=== PATIENT | male | born 1980 ===

== ENCOUNTER 2020-10-08 14:46 | Emergency (ER) | payer OTHER, SELFPAY ==
--- NOTE | ~2020-10-08 | CT_ITS ---
EXAMINATION: CT ABDOMEN AND PELVIS WITHOUT CONTRAST CLINICAL INFORMATION: Diffuse abdominal pain. COMPARISON: None TECHNIQUE: Multidetector volumetric imaging was performed from the superior aspect of the liver through the pubic symphysis. Sagittal and coronal reformatted images were obtained on the technologist's workstation. This CT examination was performed using dose optimization techniques as appropriate, variously including the following: *Automated exposure control. *Adjustment of mA and/or kV according to patient size (this includes techniques or standardized protocols for targeted exams where dose is matched to indication/reason for exam; i.e. extremities or head). *Use of iterative reconstruction technique. DLP: 534 mGy-cm FINDINGS: LUNG BASES: The visualized lung bases are unremarkable. LIVER, GALLBLADDER, AND BILIARY TREE: The liver is normal in size, shape, and attenuation. No focal hepatic lesion or biliary ductal dilatation is present. The gallbladder is minimally distended with no evidence of radiopaque gallstones, gallbladder wall thickening, or obvious pericholecystic inflammatory changes. PANCREAS: Evaluation limited without IV contrast. Grossly unremarkable. SPLEEN: Unremarkable. ADRENAL GLANDS: Unremarkable. KIDNEYS AND URETERS: The kidneys are normal in size, shape, and attenuation. No hydronephrosis, hydroureter, or calculi seen. Exophytic posterior left midpole renal cyst measuring 1.9 cm. No perinephric stranding. BLADDER: Unremarkable. GASTROINTESTINAL TRACT: Vrpk-[id number] stool throughout the colon. No significant bowel wall thickening or associated inflammatory change. Density in the region of the cecum, which could represent calcification. Partially visualized and unremarkable appendix. No associated inflammatory change. PERITONEAL CAVITY: No intra-abdominal free air or free fluid. ABDOMINAL WALL: No significant hernia is appreciated. LYMPH NODES: No significant lymphadenopathy, however, evaluation is limited without IV contrast. VASCULAR: Unremarkable. PELVIC VISCERA: The prostate and seminal vesicles are unremarkable. OSSEOUS STRUCTURES: Unremarkable. CT/CT abdomen pelvis wo con IMPRESSION: 1. Mtvv-lf-tibmgigx stool burden. No small or large bowel obstruction. Probable calcification in the region of the cecum. Partially visualized and unremarkable appendix. 2. No intra-abdominal mass, lymphadenopathy, or ascites. Evaluation somewhat limited without oral or IV contrast. 3. No hydronephrosis, hydroureter, or nephrolithiasis. Simple left renal cyst.
[2020-10-08 15:06] VITALS: BP 124/83; PULSE 68; RESP 16; TEMP 36.7; O2SAT 97; BMI 30.2
--- NOTE | 2020-10-08 17:53 | ED_ITS ---
HPI - Abdominal Pain General Chief Complaint: Abdominal Pain Stated Complaint: abd pain Time Seen by Provider: 10/08/20 17:52 Source: patient Mode of arrival: ambulatory Limitations: no limitations History of Present Illness HPI narrative: 40 years old male walked into the emergency department with diffuse abdominal pain, pain started about week ago after he played hockey game patient declined any serious abdominal trauma recently, describes the pain as moderate 5/10, pain is constant, described the pain as tightness in his bili, nothing makes the pain worse, nothing make it better, pain is just associated with dysuria but no other urinary tract infection symptoms, patient was seen and evaluated at an urgent care, patient had clear UA and also was negative for STDs then. Patient today still complaining of the pain, has been having headache, patient decline any recent exposure to a sick contact, and also declined any diarrhea or nausea or vomiting. Related Data Allergies Allergy/AdvReac Type Severity Reaction Status Date / Time gluten [GLUTEN] Allergy Unknown DIARRHEA Unverified 05/11/20 19:29 Review of Systems Review of Systems All other systems are reviewed and are negative Constitutional: Reports as per HPI and Reports no additional constitutional complaints Eyes: Reports as per HPI and Reports no additional eye complaints Reports system reviewed and no additional complaints, except as documented Cardiovascular: Reports as per HPI and Reports no additional cardiovascular complaints Respiratory: Reports as per HPI and Reports no additional respiratory complaints Gastrointestinal: Reports as per HPI and Reports no additional gastrointestinal complaints Genitourinary: Reports no additional female genitourinary complaints Musculoskeletal: Reports no additional musculoskeletal complaints Skin/Breast: Reports system reviewed and no additional complaints, except as docu Psychiatric: Reports no additional psychiatric complaints Endocrine: Reports no additional endocrine complaints Hematologic/Lymphatic: Reports no additional hematologic/lymphatic complaints Allergic/Immunologic: Reports no additional allergic/immunologic complaints Reports system reviewed and no additional complaints, except as documented and Reports Abnormal speech present Physical Exam Vital Signs: Vital Signs: Last Vital Signs Temp 98.7 F 10/08/20 18:00 Pulse 62 10/08/20 18:00 Resp 18 10/08/20 18:00 BP 117/55 L 10/08/20 18:00 Pulse Ox 96 10/08/20 18:00 Body Mass Index 30.2 Vital signs have been reviewed as normal and appeared to be correct. Blood pressure normal. Heart rate normal. Respiration rate normal. Temperature normal. Oxygen saturation normal. Appearance: Alert. Oriented X3. No acute distress. Head: Normal external exam. Normocephalic. Atraumatic. No Bae signs noted. No raccoon eyes noted Eyes: PERRLA. EOMI. Conjunctiva and sclera normal. Eyelids normal. ENT: EAC normal. TM's Normal. Pharynx normal. Uvula midline. Moist mucous membranes. No trismus noted. No drooling noted. No muffled voice noted. Neck: Normal inspection. Neck supple. FROM. No adenopathy. Thyroid Normal. No meningeal signs. No neck mass noted. CVS: Normal heart rate and rhythm. Heart sound normal. No murmurs noted. Pulses normal throughout. Respiratory: No respiratory distress. Painless inspiration. Breath sounds normal. No wheezes/rales/rhonchi noted. Chest nontender. No accessory muscle usage noted or decreased air movement noted. Abdomen: Soft and nontender. Bowel sounds normal in all 4 quadrants. No distention noted. No organomegaly noted. No visible injury noted. Back: No CVA tenderness. Full range of motion noted. Skin: Skin warm and dry. Normal skin color. Normal skin turgor. No rashes/lesions/lacerations noted. Extremities: No lower extremity edema. Extremities exhibit normal range of motion. Extremities nontender. Neuro: Oriented X 3. No motor deficit. No sensory deficit. Reflexes normal. Course Course Course Narrative: Assessment and plan. 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 Patient was instructed to drink plenty of fluids. MDM - Abdominal Pain Lab Data Result diagrams: 10/08/20 18:06 10/08/20 18:06 Labs: Lab Results 10/08/20 10/08/20 10/08/20 Range/Units 18:06 18:06 18:06 WBC 4.1 L (4.8-10.8) X10*3/uL RBC 4.30 L (4.60-5.80) X10*6/uL Hgb 13.9 L (14.0-18.0) g/dl Hct 42.1 (42-52) % MCV 97.9 (80-98) fL MCH 32.3 (27.0-33.0) pg MCHC 33.0 (31.0-36.0) g/dl RDW 12.0 (11.0-16.0) % Plt Count 239 (160-400) X10*3/uL MPV 9.7 (9.4-12.4) fL Immature Gran % (Auto) 0.2 (0.0-0.4) % Neut % (Auto) 41.8 L (45-73) % Lymph % (Auto) 43.2 H (20-40) % [place] % (Auto) 8.4 (2-11) % Eos % (Auto) 5.4 H (0-4) % Baso % (Auto) 1.0 (0-2) % Lymph # (Auto) 1.8 (1.2-4.9) X10*3/uL [place] # (Auto) 0.3 (0.1-1.2) X10*3/uL Eos # (Auto) 0.2 (0.0-0.4) X10*3/uL Baso # (Auto) 0.0 (0.0-0.2) X10*3/uL Abs Immat Gran (auto) 0.01 (0.00-0.03) X10*3/uL Absolute Neuts (auto) 1.7 L (2.0-8.3) X10*3/uL Absolute Nucleated RBC 0.000 (0.0-0.012) X10*3/uL Nucleated RBC % (auto) 0.0 (0.0-0.2) /100WBC Sodium 140 (135-145) mmol/L Potassium 4.3 (3.3-5.1) mmol/L Chloride 107 (96-108) mmol/L Carbon Dioxide 25 (22-29) mmol/L Anion Gap 12 (12-20) BUN 22 H (9-16) mg/dL Creatinine 1.26 (0.5-1.4) mg/dL Estim Creat Clear Calc 87.7 Estimated GFR > 60 Random Glucose 92 (60-115) mg/dL Calcium 9.2 (8.4-10.2) mg/dL Total Bilirubin 0.7 (0.0-1.0) mg/dL Direct Bilirubin 0.2 (0.0-0.5) mg/dL AST 30 (5-37) U/L ALT 42 H (0-40) U/L Alkaline Phosphatase 49 (39-117) U/L Total Creatine Kinase 559 H (38-174) U/L Troponin I High Sens < 3.5 (<3.5-35.0) ng/L Total Protein 6.6 (6.5-8.0) g/dL Albumin 4.3 (3.5-5.0) g/dL Lipase 37 (8-78) U/L Urine Color Urine Appearance Urine pH (5.0-8.0) Ur Specific Mineral (1.005-1.025) Urine Protein (NEG-TRACE) MG/DL Urine Glucose (UA) (NEG) MG/DL Urine Ketones (NEG) MG/DL Urine Blood (NEG) Urine Nitrite (NEG) Ur Leukocyte Esterase (NEG) COVID-19 (DIANE) (Negative) COVID-19 Clin Com 10/08/20 10/08/20 Range/Units 18:06 18:06 WBC (4.8-10.8) X10*3/uL RBC (4.60-5.80) X10*6/uL Hgb (14.0-18.0) g/dl Hct (42-52) % MCV (80-98) fL MCH (27.0-33.0) pg MCHC (31.0-36.0) g/dl RDW (11.0-16.0) % Plt Count (160-400) X10*3/uL MPV (9.4-12.4) fL Immature Gran % (Auto) (0.0-0.4) % Neut % (Auto) (45-73) % Lymph % (Auto) (20-40) % [place] % (Auto) (2-11) % Eos % (Auto) (0-4) % Baso % (Auto) (0-2) % Lymph # (Auto) (1.2-4.9) X10*3/uL [place] # (Auto) (0.1-1.2) X10*3/uL Eos # (Auto) (0.0-0.4) X10*3/uL Baso # (Auto) (0.0-0.2) X10*3/uL Abs Immat Gran (auto) (0.00-0.03) X10*3/uL Absolute Neuts (auto) (2.0-8.3) X10*3/uL Absolute Nucleated RBC (0.0-0.012) X10*3/uL Nucleated RBC % (auto) (0.0-0.2) /100WBC Sodium (135-145) mmol/L Potassium (3.3-5.1) mmol/L Chloride (96-108) mmol/L Carbon Dioxide (22-29) mmol/L Anion Gap (12-20) BUN (9-16) mg/dL Creatinine (0.5-1.4) mg/dL Estim Creat Clear Calc Estimated GFR Random Glucose (60-115) mg/dL Calcium (8.4-10.2) mg/dL Total Bilirubin (0.0-1.0) mg/dL Direct Bilirubin (0.0-0.5) mg/dL AST (5-37) U/L ALT (0-40) U/L Alkaline Phosphatase (39-117) U/L Total Creatine Kinase (38-174) U/L Troponin I High Sens (<3.5-35.0) ng/L Total Protein (6.5-8.0) g/dL Albumin (3.5-5.0) g/dL Lipase (8-78) U/L Urine Color YELLOW Urine Appearance CLEAR Urine pH 6.0 (5.0-8.0) Ur Specific Mineral 1.025 (1.005-1.025) Urine Protein NEG (NEG-TRACE) MG/DL Urine Glucose (UA) NEG (NEG) MG/DL Urine Ketones NEG (NEG) MG/DL Urine Blood NEG (NEG) Urine Nitrite NEG (NEG) Ur Leukocyte Esterase NEG (NEG) COVID-19 (DIANE) Negative (Negative) COVID-19 Clin Com See Note Imaging Data CT scan - abdomen: Radiologist's impression: 1. Ymdr-[id number] stool burden. No small or large bowel obstruction. Probable calcification in the region of the cecum. Partially visualized and unremarkable appendix. 2. No intra-abdominal mass, lymphadenopathy, or ascites. Evaluation somewhat limited without oral or IV contrast. 3. No hydronephrosis, hydroureter, or nephrolithiasis. Simple left renal cyst. Discharge Plan Discharge Clinical Impression: Abdominal pain Qualifiers: Abdominal location: unspecified location Qualified Code(s): R10.9 - Unspecified abdominal pain Rhabdomyolysis Qualifiers: Rhabdomyolysis type: non-traumatic Qualified Code(s): M62.82 - Rhabdomyolysis Patient Disposition: Home, Self-Care Instructions: Acute Abdominal Pain (ED), Rhabdomyolysis (ED) Additional Instructions: Drink plenty of fluids, seek immediate medical attention if the abdominal pain is worsening. Referrals: Sammie Rivera MD [Primary Care Provider] - 2 days PMF Past Medical History Medical History Heart disease Social History Social History Advance Directives: No Advance Directives Information Provided: Yes
[2020-10-08 18:00] VITALS: BP 117/55; PULSE 62; RESP 18; TEMP 37.1; O2SAT 96
[2020-10-08] MEDS: 0.9 % Sodium Chloride 1,000 ML 999 ML IVCONT (18:00)
[2020-10-08 18:14] LABS: MANUAL DIFF FLAG NO
[2020-10-08 18:17] LABS: Eosinophils Absolute Auto 0.2 X10*3/uL (0.0-0.4); Eosinophils Percent Auto 5.4 % (0-4); Hematocrit 42.1 % (42-52); Hemoglobin 13.9 g/dl (14.0-18.0); Imm Gran Abs Auto 0.01 X10*3/uL (0.00-0.03); Imm Gran Pct Auto 0.2 % (0.0-0.4); Lymphocytes Absolute Auto 1.8 X10*3/uL (1.2-4.9); Lymphocytes Percent Auto 43.2 % (20-40); Mean Corpuscular Hemoglobin 32.3 pg (27.0-33.0); Mean Corpuscular Volume 97.9 fL (80-98); Mean Platelet Volume 9.7 fL (9.4-12.4); Monocytes Absolute Auto 0.3 X10*3/uL (0.1-1.2); Monocytes Percent Auto 8.4 % (2-11); Neutrophils Absolute Auto 1.7 X10*3/uL (2.0-8.3); Neutrophils Percent Auto 41.8 % (45-73); Platelet Count 239 X10*3/uL (160-400); White Blood Count 4.1 X10*3/uL (4.8-10.8)
[2020-10-08 18:19] LABS: Glucose Urine UA NEG (NEG); Leukocyte Esterase Urine NEG (NEG); Nitrite Urine NEG (NEG); Specific Gravity - Urine 1.025 (1.005-1.025); Urine Blood NEG (NEG); Urine Ketones NEG (NEG); Urine Protein NEG (NEG-TRACE)
[2020-10-08 18:20] LABS: Appearance Urine CLEAR; Color Urine YELLOW
--- NOTE | 2020-10-08 18:27 | PC.NURSE ---
pt to ct scan
[2020-10-08 18:31] LABS: COVID-19 Test Negative (Negative)
[2020-10-08 18:40] LABS: Alanine Aminotransferase 42 U/L (0-40); Albumin Level 4.3 g/dL (3.5-5.0); Alkaline Phosphatase 49 U/L (39-117); Anion Gap 12 (12-20); Aspartate Amino Transferase 30 U/L (5-37); Bilirubin Direct 0.2 mg/dL (0.0-0.5); Bilirubin Total 0.7 mg/dL (0.0-1.0); Blood Urea Nitrogen 22 mg/dL (9-16); Calcium 9.2 mg/dL (8.4-10.2); Carbon Dioxide 25 mmol/L (22-29); Chloride 107 mmol/L (96-108); Creatinine Clr Calc Pharmacy 87.7; Estimated Glomerular Filt Rate > 60; Glucose Random 92 mg/dL (60-115); Lipase 37 U/L (8-78); Potassium 4.3 mmol/L (3.3-5.1); Sodium 140 mmol/L (135-145); Total Protein 6.6 g/dL (6.5-8.0)
[2020-10-08 18:43] LABS: Troponin-I High Sensitivity < 3.5 ng/L (<3.5-35.0)
== END 2020-10-08 20:03 | disposition home or self-care (01) ==
PROVIDERS: Emergency Provider Emergency Medicine; PCP Internal Medicine
DX: R10.9 Unspecified abdominal pain (principal); M62.82 Rhabdomyolysis; Z20.822 Contact with and (suspected) exposure to COVID-19; Z79.899 Other long term (current) drug therapy
CPT/HCPCS: 36415; 74176; 80048; 80076; 81003; 82550; 83690; 84484; 85025; 87635; 96360; 99284

== ENCOUNTER 2022-02-13 17:58 | Emergency (ER) | payer OTHER, SELFPAY ==
--- NOTE | 2022-02-13 | ECG_ITS ---
Test Reason : CHEST PAIN Blood Pressure : / mmHG Vent. Rate : 067 BPM Atrial Rate : 067 BPM P-R Int : 170 ms QRS Dur : 098 ms QT Int : 392 ms P-R-T Axes : 043 001 045 degrees QTc Int : 414 ms Normal sinus rhythm with sinus arrhythmia Normal ECG No previous ECGs available Referred By: Generic ED Physician Electronically Signed By:ALOK RAMIREZ MD
--- NOTE | ~2022-02-13 | XR_ITS ---
EXAMINATION: PORTABLE CHEST 1 VIEW CLINICAL INFORMATION: chest pain . COMPARISON: No recent pertinent prior studies are available for comparison. TECHNIQUE: Portable frontal view of the chest was obtained. FINDINGS: The lungs are well expanded. No focal infiltrate, effusion, edema, or pneumothorax. Cardiac and mediastinal silhouettes are within normal limits for technique. No acute bony abnormality seen. XR/XR chest 1V IMPRESSION: No evidence of acute disease.
[2022-02-13 18:16] VITALS: BP 142/86; PULSE 65; RESP 16; TEMP 36.7; O2SAT 97; BMI 31.0
[2022-02-13 18:57] LABS: COVID-19 Test Negative (Negative); IDNOW Serial# 9DB6401D
--- NOTE | 2022-02-13 19:57 | ED_ITS ---
HPI - Chest Pain General Chief Complaint: Chest Pain Stated Complaint: tired, check tightness,High pressure Time Seen by Provider: 02/13/22 19:55 Source: patient Mode of arrival: ambulatory Limitations: no limitations History of Present Illness HPI narrative: 41-year-old male with history of HTN, hx NH in his late 20 who presents to the ER for evaluation of chest tightness, headache, sore throat and fatigue. He reports during episodes of chest tightness he has been having high blood pressure readings at home. He has been compliant with all his metoprolol. He states the chest tightness and fatigue started 3 days ago. He is usually very active and plays sports, works out 2x per day. He reports the chest tightness comes and goes, is generally mild. It does not radiate. None at this time. He has no shortness of breath. No cough. No known sick contacts. MD complaint: chest heaviness Pertinent past history: prior NH Onset (ago): day(s) (3) Timing of current episode: episodic Prior episodes: No Onset: during rest Pain location: substernal Pain radiation: none Severity: mild Quality: tightness Relieving factors: nothing Exacerbating factors: nothing Context: recent illness Treatment prior to arrival: none Risk Factors Coronary artery disease risk factors: hypertension and family history of CAD bef ore age 50 Thoracic aortic dissection risk factors: none Related Data Allergies Allergy/AdvReac Type Severity Reaction Status Date / Time gluten [GLUTEN] Allergy Unknown DIARRHEA Unverified 05/11/20 19:29 Review of Systems Review of Systems: Constitutional: No Fever, No Chills, +fatigue ENT/Mouth: +sore throat, No Rhinorrhea, No Swallowing Difficulty, +otalgia Eyes: No Eye Pain, No Swelling, No Redness Cardiovascular: + Chest Pain, No SOB, No Orthopnea, No Edema Respiratory: No Cough, No Sputum, No Wheezing, No dyspnea Gastrointestinal: No Nausea, No Vomiting, No Diarrhea, No abdominal Pain, No Hematochezia, No Melena Genitourinary: No Dysuria, No Urinary Frequency, No Hematuria Musculoskeletal: No joint pain, + Myalgias Skin: No Skin Lesions, No rash Neuro: + Weakness, No Numbness, No Dizziness, + Headache Psych: No Anxiety/Panic, No Depression Heme/Lymph: No Bruising, No Lymphadenopathy Endocrine: No Polyuria, No Polydipsia PMFSH Past Medical History Medical History (Updated 02/13/22 @ 20:52 by EAN Del Rosario) Heart disease Hypertension Social History Social History Alcohol intake: current Alcohol intake frequency: a few times a week Alcohol type: hard liquor Patient Tobacco Use Status: Never used Tobacco Use of substances other than those prescribed or required for medical reasons: No Advance Directives: No Advance Directives Information Provided: Yes Physical Exam Vital Signs: Vital Signs: Last Vital Signs Temp 98.0 F 02/13/22 18:16 Pulse 63 02/13/22 20:00 Resp 18 02/13/22 20:00 BP 157/100 H 02/13/22 20:00 Pulse Ox 98 02/13/22 20:00 O2 Del Method 02/13/22 20:00 BMI result Body Mass Index 31.0 Appearance: Alert. Oriented X3. No acute distress. Eyes: Pupils equal, round and reactive to light. ENT: Pharynx with mild posterior erythema, no tonsillar exudate or swelling, uvula midline Neck: Normal inspection. Neck supple. CVS: Normal heart rate and rhythm. Pulses normal. Respiratory: No respiratory distress. Breath sounds normal. Abdomen: Soft and nontender. +BS x4 Skin: Skin warm and dry. Normal skin color. Normal skin turgor. No rashes. Extremities: No lower extremity edema. No calf tenderness Neuro: Oriented X 3. No motor deficit. No sensory deficit. Course Course Course Narrative: 41 yo male with history of NH in his late 20s presents to the ER with in termittent chest tightness for the last 3 days along with fatigue, headache, ear pain and not feeling well. 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 he reports having a heart catheterization at that time that did not show any blockages. He has been on Lopressor, baby aspirin and low-dose Lipitor since then. He follows with exercise physiologist certified yearly. He gets echocardiograms every 2 years and has had no changes. His chest tightness does not seem typical for ACS but will check troponin. His EKG is unremarkable. Will check COVID, mono, chest x-ray and metabolic workup. Reevaluation(s) Reevaluation #1: Lab workup was unremarkable, including a negative troponin. He is feeling well. At this time is stable for discharge home with plan to follow-up with his PCP and his exercise physiologist certified. His blood pressure has been in the 150 range systolic at home. He has been compliant with his meds will follow up with his PCP for possible titration. MDM - Chest Pain Medical Records Data Attestation: I reviewed the patient's medical records. Lab Data Attestation: I reviewed the patient's lab results. Result diagrams: 02/13/22 20:13 02/13/22 20:13 Labs: Lab Results 02/13/22 02/13/22 02/13/22 Range/Units 18:21 20:13 20:13 WBC 4.8 (4.8-10.8) X10*3/uL RBC 3.97 L (4.60-5.80) X10*6/uL Hgb 13.4 L (14.0-18.0) g/dl Hct 39.6 L (42.0-52.0) % MCV 99.7 H (80.0-98.0) fL MCH 33.8 H (27.0-33.0) pg MCHC 33.8 (31.0-36.0) g/dl RDW 12.1 (11.0-16.0) % Plt Count 204 (160-400) X10*3/uL MPV 9.8 (9.4-12.4) fL Immature Gran % (Auto) 0.2 (0.0-0.4) % Neut % (Auto) 64.9 (45-73) % Lymph % (Auto) 24.5 (20-40) % [place] % (Auto) 6.9 (2-11) % Eos % (Auto) 2.9 (0-4) % Baso % (Auto) 0.6 (0-2) % Lymph # (Auto) 1.2 (1.2-4.9) X10*3/uL [place] # (Auto) 0.3 (0.1-1.2) X10*3/uL Eos # (Auto) 0.1 (0.0-0.4) X10*3/uL Baso # (Auto) 0.0 (0.0-0.2) X10*3/uL Abs Immat Gran (auto) 0.01 (0.00-0.03) X10*3/uL Absolute Neuts (auto) 3.1 (2.0-8.3) x10*3/uL Absolute Nucleated RBC 0.000 (0.0-0.012) X10*3/uL Nucleated RBC % (auto) 0.0 (0.0-0.2) /100WBC Sodium 138 (135-145) mmol/L Potassium 4.4 (3.3-5.1) mmol/L Chloride 103 (96-108) mmol/L Carbon Dioxide 27 (22-29) mmol/L Anion Gap 12 (12-20) BUN 12 (9-16) mg/dL Creatinine 0.99 (0.5-1.4) mg/dL Estim Creat Clear Calc 111.8 Estimated GFR > 60 Random Glucose 87 (60-115) mg/dL Calcium 9.0 (8.4-10.2) mg/dL Magnesium 2.2 (1.6-2.6) mg/dL Total Bilirubin 0.5 (0.0-1.0) mg/dL Direct Bilirubin 0.2 (0.0-0.5) mg/dL AST 25 (5-37) U/L ALT 30 (0-40) U/L Alkaline Phosphatase 45 (39-117) U/L Troponin I High Sens (<3.5-35.0) ng/L Total Protein 6.8 (6.5-8.0) g/dL Albumin 4.4 (3.5-5.0) g/dL COVID-19 (DIANE) Negative (Negative) COVID-19 Clin Com See Note Monoscreen (Negative) 02/13/22 02/13/22 Range/Units 20:13 20:13 WBC (4.8-10.8) X10*3/uL RBC (4.60-5.80) X10*6/uL Hgb (14.0-18.0) g/dl Hct (42.0-52.0) % MCV (80.0-98.0) fL MCH (27.0-33.0) pg MCHC (31.0-36.0) g/dl RDW (11.0-16.0) % Plt Count (160-400) X10*3/uL MPV (9.4-12.4) fL Immature Gran % (Auto) (0.0-0.4) % Neut % (Auto) (45-73) % Lymph % (Auto) (20-40) % [place] % (Auto) (2-11) % Eos % (Auto) (0-4) % Baso % (Auto) (0-2) % Lymph # (Auto) (1.2-4.9) X10*3/uL [place] # (Auto) (0.1-1.2) X10*3/uL Eos # (Auto) (0.0-0.4) X10*3/uL Baso # (Auto) (0.0-0.2) X10*3/uL Abs Immat Gran (auto) (0.00-0.03) X10*3/uL Absolute Neuts (auto) (2.0-8.3) x10*3/uL Absolute Nucleated RBC (0.0-0.012) X10*3/uL Nucleated RBC % (auto) (0.0-0.2) /100WBC Sodium (135-145) mmol/L Potassium (3.3-5.1) mmol/L Chloride (96-108) mmol/L Carbon Dioxide (22-29) mmol/L Anion Gap (12-20) BUN (9-16) mg/dL Creatinine (0.5-1.4) mg/dL Estim Creat Clear Calc Estimated GFR Random Glucose (60-115) mg/dL Calcium (8.4-10.2) mg/dL Magnesium (1.6-2.6) mg/dL Total Bilirubin (0.0-1.0) mg/dL Direct Bilirubin (0.0-0.5) mg/dL AST (5-37) U/L ALT (0-40) U/L Alkaline Phosphatase (39-117) U/L Troponin I High Sens < 3.5 (<3.5-35.0) ng/L Total Protein (6.5-8.0) g/dL Albumin (3.5-5.0) g/dL COVID-19 (DIANE) (Negative) COVID-19 Clin Com Monoscreen Negative (Negative) ECG Data ECG #1: Attestation: I personally reviewed and interpreted this ECG as follows: ECG interpretation date: 02/13/22 ECG interpretation time: 20:54 Prior ECG tracings: not available for review Interpretation: normal sinus rhythm with sinus arrhythmia, heart rate 67 beats per minute, normal WI interval, no ST segment elevations or depressions. Critical Care Time Critical Care Time Critical Care Time: No Discharge Plan Discharge Clinical Impression: Acute viral syndrome Patient Disposition: Home, Self-Care Instructions: Viral Syndrome (ED) Additional Instructions: your lab workup today was normal, including a negative cardiac enzyme your chest x-ray was normal you are negative for COVID-19 and [place] your symptoms are most likely due to a viral type illness rest, stay hydrated follow up with your primary care doctor this week if you develop new or worsening symptoms call 911 or come back to the ER for further evaluation. Interventions: ED Discharge Assessment Last Done: 02/13/22 21:16 Discharge Date/Time: 02/13/22 21:34
[2022-02-13 20:00] VITALS: BP 157/100; PULSE 63; RESP 18; O2SAT 98
--- NOTE | 2022-02-13 20:16 | PC.NURSE ---
patient a&ox3, pt currently denying chest pain/discomfort, residential monitor nsr 60s, pt hypertensive-provider aware, iv inserted, labs drawn, will continue to monitor
[2022-02-13 20:18] LABS: MANUAL DIFF FLAG NO
[2022-02-13 20:21] LABS: Basophils Percent Auto 0.6 % (0-2); Eosinophils Absolute Auto 0.1 X10*3/uL (0.0-0.4); Eosinophils Percent Auto 2.9 % (0-4); Hematocrit 39.6 % (42.0-52.0); Hemoglobin 13.4 g/dl (14.0-18.0); Imm Gran Abs Auto 0.01 X10*3/uL (0.00-0.03); Imm Gran Pct Auto 0.2 % (0.0-0.4); Lymphocytes Absolute Auto 1.2 X10*3/uL (1.2-4.9); Lymphocytes Percent Auto 24.5 % (20-40); Mean Corpuscular HGB Conc 33.8 g/dl (31.0-36.0); Mean Corpuscular Hemoglobin 33.8 pg (27.0-33.0); Mean Corpuscular Volume 99.7 fL (80.0-98.0); Mean Platelet Volume 9.8 fL (9.4-12.4); Monocytes Absolute Auto 0.3 X10*3/uL (0.1-1.2); Monocytes Percent Auto 6.9 % (2-11); Neutrophils Absolute Auto 3.1 x10*3/uL (2.0-8.3); Neutrophils Percent Auto 64.9 % (45-73); Platelet Count 204 X10*3/uL (160-400); Red Blood Count 3.97 X10*6/uL (4.60-5.80); Red Cell Distribution Width 12.1 % (11.0-16.0); White Blood Count 4.8 X10*3/uL (4.8-10.8)
[2022-02-13 20:34] LABS: Alanine Aminotransferase 30 U/L (0-40); Albumin Level 4.4 g/dL (3.5-5.0); Alkaline Phosphatase 45 U/L (39-117); Anion Gap 12 (12-20); Aspartate Amino Transferase 25 U/L (5-37); Bilirubin Direct 0.2 mg/dL (0.0-0.5); Bilirubin Total 0.5 mg/dL (0.0-1.0); Blood Urea Nitrogen 12 mg/dL (9-16); Carbon Dioxide 27 mmol/L (22-29); Chloride 103 mmol/L (96-108); Creatinine Clr Calc Pharmacy 111.8; Estimated Glomerular Filt Rate > 60; Glucose Random 87 mg/dL (60-115); Magnesium 2.2 mg/dL (1.6-2.6); Potassium 4.4 mmol/L (3.3-5.1); Sodium 138 mmol/L (135-145); Total Protein 6.8 g/dL (6.5-8.0)
[2022-02-13 20:40] LABS: Troponin-I High Sensitivity < 3.5 ng/L (<3.5-35.0)
[2022-02-13 20:44] LABS: Monotest Negative (Negative)
== END 2022-02-13 21:34 | disposition home or self-care (01) ==
PROVIDERS: Physician Assistant; Emergency Provider Internal Medicine; PCP Internal Medicine
DX: B34.9 Viral infection, unspecified (principal); R07.89 Other chest pain; Z20.822 Contact with and (suspected) exposure to COVID-19; Z79.899 Other long term (current) drug therapy
CPT/HCPCS: 36415; 71045; 80048; 80076; 83735; 84484; 85025; 86308; 87635; 93005; 99283; 99284; 99285

== ENCOUNTER 2022-03-24 17:02 | Emergency (ER) | payer OTHER, SELFPAY ==
--- NOTE | ~2022-03-24 | CT_ITS ---
EXAMINATION: NONCONTRAST HEAD CT NONCONTRAST MAXILLOFACIAL CT INDICATION INFORMATION: Dizziness and left jaw pain status post dental work COMPARISON: None TECHNIQUE: Separate noncontrast CT examinations of the head and maxillofacial bones were performed. Coronal and sagittal images were created for each examination at the technologist workstation. This CT examination was performed using dose optimization techniques as appropriate, variously including the following: *Automated exposure control *Adjustment of mA and/or kV according to patient size (this includes techniques or standardized protocols for targeted exams where dose is matched to indication/reason for exam; i.e. extremities or head) *Use of iterative reconstruction technique DLP: 1045 mGy-cm FINDINGS: HEAD: No intra or extra-axial fluid collection, hemorrhage, or mass. No midline shift or herniation. Basal cisterns are patent. Lyman-white matter differentiation is maintained. No territorial encephalomalacia.. No hydrocephalus. No significant volume loss. There is no abnormal attenuation within the brain parenchyma. No acute soft tissue abnormality. No calvarial fracture. The mastoid air cells are well aerated. MAXILLOFACIAL: No acute facial bone fractures are seen. Mild lobulated mucosal thickening along the floor the maxillary antra bilaterally. Minimal mucosal thickening in the sphenoid sinuses and within a few ethmoid air cells. No air-fluid levels. No hyperostosis. The mandibular heads are normally positioned in the glenoid fossa. No periapical lucencies about the mandibular maxillary teeth. Multiple dental fillings. No fractured teeth identified. The orbits demonstrate a normal appearance bilaterally. The globes are intact. No evidence of retrobulbar hemorrhage. Normal appearance of the parotid, merchandising intern and submandibular spaces. No mucosal space mass. No displacement of the parapharyngeal fat. CT/CT facial bones wo con IMPRESSION: 1. No acute intracranial process. 2. No periapical lucencies to suggest dental abscess. No facial bone fracture. No soft tissue fluid collection identified.
--- NOTE | ~2022-03-24 | CT_ITS ---
EXAMINATION: NONCONTRAST HEAD CT NONCONTRAST MAXILLOFACIAL CT INDICATION INFORMATION: Dizziness and left jaw pain status post dental work COMPARISON: None TECHNIQUE: Separate noncontrast CT examinations of the head and maxillofacial bones were performed. Coronal and sagittal images were created for each examination at the technologist workstation. This CT examination was performed using dose optimization techniques as appropriate, variously including the following: *Automated exposure control *Adjustment of mA and/or kV according to patient size (this includes techniques or standardized protocols for targeted exams where dose is matched to indication/reason for exam; i.e. extremities or head) *Use of iterative reconstruction technique DLP: 1045 mGy-cm FINDINGS: HEAD: No intra or extra-axial fluid collection, hemorrhage, or mass. No midline shift or herniation. Basal cisterns are patent. Lyman-white matter differentiation is maintained. No territorial encephalomalacia.. No hydrocephalus. No significant volume loss. There is no abnormal attenuation within the brain parenchyma. No acute soft tissue abnormality. No calvarial fracture. The mastoid air cells are well aerated. MAXILLOFACIAL: No acute facial bone fractures are seen. Mild lobulated mucosal thickening along the floor the maxillary antra bilaterally. Minimal mucosal thickening in the sphenoid sinuses and within a few ethmoid air cells. No air-fluid levels. No hyperostosis. The mandibular heads are normally positioned in the glenoid fossa. No periapical lucencies about the mandibular maxillary teeth. Multiple dental fillings. No fractured teeth identified. The orbits demonstrate a normal appearance bilaterally. The globes are intact. No evidence of retrobulbar hemorrhage. Normal appearance of the parotid, equipment services associate and submandibular spaces. No mucosal space mass. No displacement of the parapharyngeal fat. CT/CT head/brain wo con IMPRESSION: 1. No acute intracranial process. 2. No periapical lucencies to suggest dental abscess. No facial bone fracture. No soft tissue fluid collection identified.
--- NOTE | ~2022-03-24 | XR_ITS ---
EXAMINATION: XR CHEST CLINICAL INFORMATION: Chest pain. COMPARISON: February 13, 2022. TECHNIQUE: Frontal view of the chest was obtained. FINDINGS: No significant abnormality is noted involving the heart, lungs, mediastinum, bony thorax or soft tissues. XR/XR chest 1V IMPRESSION: Unremarkable examination.
[2022-03-24 17:09] VITALS: BP 149/80; PULSE 70; RESP 18; TEMP 36.8; O2SAT 96; BMI 32.3
--- NOTE | 2022-03-24 17:16 | ECG_ITS ---
Test Reason : CX TIGHTNESS Blood Pressure : / mmHG Vent. Rate : 068 BPM Atrial Rate : 068 BPM P-R Int : 166 ms QRS Dur : 100 ms QT Int : 374 ms P-R-T Axes : 044 -07 028 degrees QTc Int : 397 ms Normal sinus rhythm Incomplete right bundle branch block Minimal voltage criteria for LVH, may be normal variant ( Kj product ) Inferior infarct , age undetermined Abnormal ECG When compared with ECG of 13-FEB-2022 18:20, Inferior infarct is now Present Referred By: Generic ED Physician Electronically Signed By:ALOK RAMIREZ MD
--- NOTE | 2022-03-24 18:12 | ED.CHESTPAIN ---
HPI - Chest Pain General Chief Complaint: Chest Pain Stated Complaint: headaches/pain on L side of face/dizziness Source: patient Mode of arrival: ambulatory Limitations: no limitations History of Present Illness HPI narrative: 42-year-old male presents with jaw pain with recent dental work, chest pain, pressure in his head, lethargy, dizziness, headaches, numbness and tingling to his hands and feet, and gland swelling. Was diagnosed with COVID approximately 3 weeks ago, was evaluated by a import customer service manager and a primary care physician last week. Patient does not report pain on inspiration, palpitations, diaphoresis, abdominal pain and distention, and vomiting, diarrhea, weakness, loss of balance, or symptoms indicating cauda equina. He does have a prior history of MS in his 20s. MD complaint: chest pain Pertinent past history: prior MS Onset (ago): week(s) (3) Timing of current episode: constant Prior episodes: Yes Pain location: substernal Pain radiation: none Severity: moderate Pain scale (0-10): 6 Quality: aching Relieving factors: nothing Exacerbating factors: nothing Context: recent illness Treatment prior to arrival: none Risk Factors Thoracic aortic dissection risk factors: weight lifting Related Data Previous Rx's Medication Instructions Recorded amoxicillin 875 mg-potassium 1 tab PO Q12H 10 days #20 tabs 03/24/22 clavulanate 125 mg tablet Allergies Allergy/AdvReac Type Severity Reaction Status Date / Time gluten [GLUTEN] Allergy Unknown DIARRHEA Unverified 05/11/20 19:29 Review of Systems Review of Systems: Constitutional: No Fever, No Chills ENT/Mouth: Positive jaw pain, No Ear Pain, No Hoarseness, No sore throat Eyes: No Eye Pain, No Swelling, No Redness, No Foreign Body Cardiovascular: Positive Chest Pain, No SOB Respiratory: No Cough, No Dyspnea Gastrointestinal: Positive Nausea, No Vomiting, No Diarrhea, No abdominal Pain Genitourinary: No Dysuria, No Hematuria Musculoskeletal: No joint pain, No Myalgias, No Joint Swelling Skin: No Skin lacerations, No rash Neuro: No Weakness, No Numbness, positive Paresthesias, No Loss of Consciousness, positive Dizziness, No Headache Psych: No Anxiety/Panic, No Depression Heme/Lymph: no easy bruising, no Lymphadenopathy Endocrine: No Polyuria, No Polydipsia Yes all other systems are reviewed and are negative PMFSH Past Medical History Attestation statement: The following information was validated with the patient. Source: old records reviewed Medical History Heart disease Hypertension Social History Social History Alcohol intake: current Alcohol intake frequency: a few times a week Alcohol type: hard liquor Patient Tobacco Use Status: Never used Tobacco Advance Directives: No Advance Directives Information Provided: No Physical Exam Vital Signs: Vital Signs: Last Vital Signs Temp 98.2 F 03/24/22 20:00 Pulse 60 03/24/22 20:00 Resp 20 03/24/22 20:00 BP 126/77 03/24/22 20:00 Pulse Ox 96 03/24/22 20:00 O2 Del Method 03/24/22 20:00 BMI result Body Mass Index 32.3 Appearance: Alert. Oriented X3. No acute distress. Eyes: Pupils equal, round and reactive to light. EOMI. Sclera nonicteric. ENT: Pharynx normal. Neck: Normal inspection. Neck supple. No nuchal rigidity. No cervical lymphadenopathy noted. CVS: Normal heart rate and rhythm. Apical pulses equal 2 pulses to extremities. Respiratory: No respiratory distress. Lung sounds clear to auscultation all lobes. Abdomen: Soft and nontender. Skin: Skin warm and dry. Normal skin color. Normal skin turgor. Extremities: Gait well-balanced well coordinated. Moves all extremities against resistance. Neuro: No motor deficit. No sensory deficit. Cranial nerves 2-12 intact. NIH Stroke Scale Time: 18:40 Level of Consciousness: Alert Level of Consciousness Questions: Answers both questions correctly Level of Consciousness Commands: Performs both tasks correctly Best Gaze: Normal Visual: No visual loss Facial Palsy: Normal Motor Arm (Right): No drift Motor Arm (Left): No drift Motor Leg (Right): No drift Motor Leg (Left): No drift Limb Ataxia: Absent Sensory: Normal Best Language: No aphasia Dysarthia: Normal Extinction and Inattention: No abnormality Score: 0 Course Course Course Narrative: 42-year-old male presents with multiple complaints. States that he has jaw pain from recent dental work. Has chest pain and pressure, pressure in his head, lethargy, dizziness, headaches, and gland swelling with paresthesias to all extremities. He has been evaluated by his primary care physician as well as a import customer service manager last week with negative workup. He does lift weights, uses [id number] supplements denies hormone and steroid use. Patient states this pain is not similar to his prior MS. Well PE score is 0. Will order ACS workup. Order CT scan of head with facial bones. 21:33 CT scan of head is negative for acute findings. EKG not show any significant changes from prior EKG. Troponin is negative. White count is 3.7 which is consistent with his prior values. H&H 13.6/39.6 which is consistent with prior values. Plan of care is for patient to discharge home, follow-up with Cardiology and primary care physician as needed. Is highly recommended that patient follow-up with his dentist as CT scan does indicate some mild lobulated mucosal thickening on the floor of the maxillary antra bilaterally. There are no findings for Chicho's at this time. Will give patient Augmentin as he had recent dental work. Patient verbalized understanding of and agrees to plan of care discharge home. Verbalized understanding of signs and symptoms indicating need for emergent intervention. MDM - Chest Pain Differential Diagnosis Differential diagnosis: Likely fracture of rib, pneumothorax, unstable angina pectoris, atypical chest pain, st elevation myocardial infarction, costochondritis and chest pain Medical Records Data Attestation: I reviewed the patient's medical records. Lab Data Attestation: I reviewed the patient's lab results. Result diagrams: 03/24/22 19:28 03/24/22 19:28 Labs: Lab Results 03/24/22 03/24/22 03/24/22 Range/Units 19:28 19:28 19:28 WBC 3.7 L (4.8-10.8) X10*3/uL RBC 4.10 L (4.60-5.80) X10*6/uL Hgb 13.6 L (14.0-18.0) g/dl Hct 39.6 L (42.0-52.0) % MCV 96.6 (80.0-98.0) fL MCH 33.2 H (27.0-33.0) pg MCHC 34.3 (31.0-36.0) g/dl RDW 11.7 (11.0-16.0) % Plt Count 221 (160-400) X10*3/uL MPV 9.5 (9.4-12.4) fL Immature Gran % (Auto) 0.0 (0.0-0.4) % Neut % (Auto) 35.7 L (45-73) % Lymph % (Auto) 47.2 H (20-40) % Kenedy % (Auto) 8.9 (2-11) % Eos % (Auto) 6.8 H (0-4) % Baso % (Auto) 1.4 (0-2) % Lymph # (Auto) 1.7 (1.2-4.9) X10*3/uL Kenedy # (Auto) 0.3 (0.1-1.2) X10*3/uL Eos # (Auto) 0.3 (0.0-0.4) X10*3/uL Baso # (Auto) 0.1 (0.0-0.2) X10*3/uL Abs Immat Gran (auto) 0.00 (0.00-0.03) X10*3/uL Absolute Neuts (auto) 1.3 L (2.0-8.3) x10*3/uL Absolute Nucleated RBC 0.000 (0.0-0.012) X10*3/uL Nucleated RBC % (auto) 0.0 (0.0-0.2) /100WBC Sodium 139 (135-145) mmol/L Potassium 4.3 (3.3-5.1) mmol/L Chloride 103 (96-108) mmol/L Carbon Dioxide 27 (22-29) mmol/L Anion Gap 13 (12-20) BUN 13 (9-16) mg/dL Creatinine 1.07 (0.5-1.4) mg/dL Estim Creat Clear Calc 104.4 Estimated GFR > 60 Random Glucose 91 (60-115) mg/dL Calcium 9.5 (8.4-10.2) mg/dL Troponin I High Sens < 3.5 (<3.5-35.0) ng/L Imaging Data Chest x-ray: Attestation: I personally reviewed and interpreted this imaging study as follows: Radiologist's impression: EXAMINATION: XR CHEST CLINICAL INFORMATION: Chest pain. COMPARISON: February 13, 2022. TECHNIQUE: Frontal view of the chest was obtained. FINDINGS: No significant abnormality is noted involving the heart, lungs, mediastinum, bony thorax or soft tissues. XR/XR chest 1V IMPRESSION: Unremarkable examination. ? ECG Data ECG #1: Attestation: I personally reviewed and interpreted this ECG as follows: ECG interpretation date: 03/24/22 ECG interpretation time: 17:23 Prior ECG tracings: available for review Interpretation: Vent. rate 68 BPM MT interval 166 ms QRS duration 100 ms QT/QTc 374/397 ms P-R-T axes 44 -7 28 Normal sinus rhythm Incomplete right bundle branch block Minimal voltage criteria for LVH, may be normal variant ( Kj product ) Inferior infarct , age undetermined Abnormal ECG When compared with ECG of 13-FEB-2022 18:20, Inferior infarct is now Present Discharge Plan Discharge Clinical Impression: Chest pain, Pain, dental Patient Disposition: Home, Self-Care Instructions: Toothache (ED), Noncardiac Chest Pain (ED) Additional Instructions: You were evaluated up for chest pain, head pressure, jaw pain, and fatigue. CT scan of head and facial bones negative for acute findings. For dental pain, we are treating you with Augmentin 875 mg twice a day for the next 10 days. You must follow-up with your dentist for further evaluation. Your EKG is normal sinus rhythm, no significant changes from your past EKG. Your chest x-ray is normal. Your troponins, which are cardiac enzymes, are negative. Thank you for choosing this emergency department for evaluation. Please follow-up with primary care physician as needed. Return to the emergency department for any new, concerning, or worsening symptoms. Prescriptions: New amoxicillin-pot clavulanate 875-125 mg tablet 1 tab PO Q12H 10 Days Qty: 20 0RF Stand Alone Forms: Dental Emergency Numbers Interventions: ED Discharge Assessment Last Done: 03/24/22 21:41 Discharge Date/Time: 03/24/22 22:00
[2022-03-24 19:19] VITALS: BP 137/90; PULSE 65; RESP 20; O2SAT 97
[2022-03-24 19:36] LABS: Basophils Absolute Auto 0.1 X10*3/uL (0.0-0.2); Basophils Percent Auto 1.4 % (0-2); Eosinophils Absolute Auto 0.3 X10*3/uL (0.0-0.4); Eosinophils Percent Auto 6.8 % (0-4); Hematocrit 39.6 % (42.0-52.0); Hemoglobin 13.6 g/dl (14.0-18.0); Lymphocytes Absolute Auto 1.7 X10*3/uL (1.2-4.9); Lymphocytes Percent Auto 47.2 % (20-40); MANUAL DIFF FLAG NO; Mean Corpuscular HGB Conc 34.3 g/dl (31.0-36.0); Mean Corpuscular Hemoglobin 33.2 pg (27.0-33.0); Mean Corpuscular Volume 96.6 fL (80.0-98.0); Mean Platelet Volume 9.5 fL (9.4-12.4); Monocytes Absolute Auto 0.3 X10*3/uL (0.1-1.2); Monocytes Percent Auto 8.9 % (2-11); Neutrophils Absolute Auto 1.3 x10*3/uL (2.0-8.3); Neutrophils Percent Auto 35.7 % (45-73); Platelet Count 221 X10*3/uL (160-400); Red Cell Distribution Width 11.7 % (11.0-16.0); White Blood Count 3.7 X10*3/uL (4.8-10.8)
[2022-03-24 19:49] LABS: Anion Gap 13 (12-20); Blood Urea Nitrogen 13 mg/dL (9-16); Calcium 9.5 mg/dL (8.4-10.2); Carbon Dioxide 27 mmol/L (22-29); Chloride 103 mmol/L (96-108); Creatinine Clr Calc Pharmacy 104.4; Estimated Glomerular Filt Rate > 60; Glucose Random 91 mg/dL (60-115); Potassium 4.3 mmol/L (3.3-5.1); Sodium 139 mmol/L (135-145)
[2022-03-24 19:56] LABS: Troponin-I High Sensitivity < 3.5 ng/L (<3.5-35.0)
[2022-03-24 20:00] VITALS: BP 126/77; PULSE 60; RESP 20; TEMP 36.8; O2SAT 96
[2022-03-24] MEDS: Amoxicillin/Potassium Clav 875 MG TABLET PO (21:48)
== END 2022-03-24 22:00 | disposition home or self-care (01) ==
PROVIDERS: Emergency Provider Internal Medicine
DX: R07.89 Other chest pain (principal); R42 Dizziness and giddiness; R51.9 Headache, unspecified; K08.89 Other specified disorders of teeth and supporting structures; Z79.899 Other long term (current) drug therapy
CPT/HCPCS: 36415; 70450; 70486; 71045; 80048; 84484; 85025; 93005; 99285

== ENCOUNTER 2022-12-21 12:46 | Emergency (ER) | payer OTHER, SELFPAY ==
--- NOTE | ~2022-12-21 | CT_ITS ---
EXAMINATION: CT ABDOMEN AND PELVIS WITH CONTRAST CLINICAL INFORMATION: Abdominal pain. COMPARISON: CT abdomen and pelvis 10/08/20. TECHNIQUE: Multidetector volumetric images were obtained from the superior aspect of the liver through the pubic symphysis following administration 85 mL of Omnipaque 350 intravenous contrast. Sagittal and coronal reformatted images were obtained on the technologist's workstation. Oral contrast: No This CT examination was performed using dose optimization techniques as appropriate, variously including the following: *Automated exposure control *Adjustment of mA and/or kV according to patient size (this includes techniques or standardized protocols for targeted exams where dose is matched to indication/reason for exam; i.e. extremities or head) *Use of iterative reconstruction technique DLP: 581. mGy-cm FINDINGS: LUNG BASES: The visualized lung bases are unremarkable. LIVER, GALLBLADDER, AND BILIARY TREE: The liver is normal in size, shape, and attenuation. No focal hepatic lesion or biliary ductal dilatation is present. The gallbladder is unremarkable with no evidence of radiopaque gallstones, gallbladder wall thickening, or obvious pericholecystic inflammatory changes. PANCREAS: No discrete pancreatic mass. No ductal dilatation. SPLEEN: Normal. ADRENAL GLANDS: No adrenal mass. KIDNEYS AND URETERS: Stable bilobed or two adjacent simple cysts in the left kidney that are simple in density. No follow-up imaging is recommended. No nephrolithiasis or hydronephrosis. BLADDER: Unremarkable. GASTROINTESTINAL TRACT: The small bowel is normal in caliber. No mesenteric adenopathy. Retrocecal appendix appears normal. The large bowel is normal in caliber. No diverticulosis or evidence of colitis. ABDOMINAL WALL: Surgical clips in the right inguinal region. No hernia. LYMPH NODES: No lymphadenopathy. VASCULAR: No aortic aneurysm.. PELVIC VISCERA: The prostate and seminal vesicles are unremarkable. OSSEOUS STRUCTURES: No suspicious osseous abnormality. CT/CT abdomen pelvis w IV con IMPRESSION: No acute findings. Fleischner guidelines were followed.
--- NOTE | ~2022-12-21 | XR_ITS ---
EXAMINATION: XR CHEST CLINICAL INFORMATION: Shortness of breath COMPARISON: 03/24/2022 TECHNIQUE: 2 views of the chest were obtained. FINDINGS: No significant abnormality is noted involving the heart, lungs, mediastinum, bony thorax or soft tissues. XR/XR chest 2V IMPRESSION: Unremarkable examination.
--- NOTE | 2022-12-21 12:50 | ECG_ITS ---
Test Reason : CHEST TIGHTNESS Blood Pressure : / mmHG Vent. Rate : 066 BPM Atrial Rate : 066 BPM P-R Int : 182 ms QRS Dur : 104 ms QT Int : 382 ms P-R-T Axes : 045 017 -04 degrees QTc Int : 400 ms Normal sinus rhythm Moderate voltage criteria for LVH, may be normal variant ( R in aVL , Kj product ) Inferior infarct (cited on or before 24-MAR-2022) Abnormal ECG When compared with ECG of 24-MAR-2022 17:23, Incomplete right bundle branch block is no longer Present Inverted T waves have replaced nonspecific T wave abnormality in Inferior leads Referred By: Aleta Moreno Electronically Signed By:Nate Benitez
--- NOTE | 2022-12-21 12:55 | MHC.EDTECH ---
EKG completed and signed by
--- NOTE | 2022-12-21 13:01 | ED.SOB ---
HPI - SOB/Dyspnea General Chief Complaint: Chest Pain <EAN Del Rosario - Last Filed: 12/21/22 13:04> Stated Complaint: sob chest tightness lightheaded <EAN Del Rosario - Last Filed: 12/21/22 13:04> Time Seen by Provider: 12/21/22 13:55 <EAN Del Rosario - Last Filed: 12/21/22 13:04> Source: patient <EAN Conteh - Last Filed: 12/21/22 16:02> Mode of arrival: ambulatory <EAN Conteh - Last Filed: 12/21/22 16:02> Limitations: no limitations <EAN Conteh Last Filed: 12/21/22 16:02> History of Present Illness HPI Narrative: Patient is a 42 year old assigned male at with a history of cardiac disease presenting to the emergency department today with cehst pain. Patient states that in his 20s he had a cardiac cath done and no stents were placed. Patient states that he has been having intermittent epigastric pain for 4-6 weeks that is worse with eating. Patient denies any dizziness, lightheadedness, nausea, vomiting, fever, chills, blurry vision, double vision, loss of vision, difficulty breathing, shortness of breath, back pain, night sweats, pain with urination, increased urinary frequency, increased urinary urgency, blood in his urine or stool, syncope or a near syncopal episode, recent trauma or falls, bowel incontinence, bladder incontinence, bowel retention, bladder retention, or any other complaints at this time. <EAN Conteh - Last Filed: 12/21/22 16:02> Related Data Home Medications: Previous Rx's Medication Instructions Recorded amoxicillin 875 mg-potassium 1 tab PO Q12H 10 days #20 tabs 03/24/22 clavulanate 125 mg tablet <EAN Del Rosario - Last Filed: 12/21/22 13:04> Allergies/Adverse Reactions: Allergies Allergy/AdvReac Type Severity Reaction Status Date / Time gluten [GLUTEN] Allergy Unknown DIARRHEA Unverified 05/11/20 19:29 <EAN Del Rosario Last Filed: 12/21/22 13:04> Review of Systems Constitutional: Constitutional: Reports no additional constitutional complaints, Denies chills, Denies fever(s) and Denies night sweats <EAN Conteh - Last Filed: 12/21/22 16:02> Eyes: Eyes: Reports no additional eye complaints, Denies blurry vision, Denies change in vision, Denies diplopia, Denies eye discharge, Denies loss of vision and Denies eye pain <EAN Conteh - Last Filed: 12/21/22 16:02> ENT: Denies dizziness <EAN Conteh - Last Filed: 12/21/22 16:02> Cardiovascular: Cardiovascular: Reports no additional cardiovascular complaints, Reports chest pain, Denies lightheadedness, Denies Loss of Consciousness and Denies dyspnea <EAN Conteh - Last Filed: 12/21/22 16:02> Respiratory: Respiratory: Reports no additional respiratory complaints and Denies dyspnea <EAN Conteh - Last Filed: 12/21/22 16:02> Gastrointestinal: Gastrointestinal: Reports no additional gastrointestinal complaints, Reports abdominal pain, Denies melena, Denies hematochezia, Denies change in bowel habits and Denies change in stool character <EAN Conteh - Last Filed: 12/21/22 16:02> Genitourinary: Genitourinary: Reports no additional male genitourinary complaints, Denies hematuria, Denies oliguria, Denies difficulty urinating, Denies dysuria, Denies urinary frequency, Denies urinary hesitancy, Denies urinary incontinence and Denies urinary urgency <EAN Conteh - Last Filed: 12/21/22 16:02> Musculoskeletal: Musculoskeletal: Reports no additional musculoskeletal complaints, Denies numbness and Denies tingling <EAN Conteh - Last Filed: 12/21/22 16:02> Neurologic: Denies dizziness, Denies loss of vision, Denies numbness and Denies tingling <EAN Conteh - Last Filed: 12/21/22 16:02> Psychiatric: Psychiatric: Reports no additional psychiatric complaints <EAN Conteh - Last Filed: 12/21/22 16:02> Endocrine: Endocrine: Reports no additional endocrine complaints <EAN Conteh - Last Filed: 12/21/22 16:02> Hematologic/Lymphatic: Hematologic/Lymphatic: Reports no additional hematologic/lymphatic complaints <EAN Conteh - Last Filed: 12/21/22 16:02> Allergic/Immunologic: Allergic/Immunologic: Reports no additional allergic/immunologic complaints <EAN Conteh - Last Filed: 12/21/22 16:02> PMFSH Past Medical History Attestation statement: The following information was validated with the patient. <EAN Conteh - Last Filed: 12/21/22 16:02> Source: old records reviewed and nursing notes reviewed <EAN Conteh - Last Filed: 12/21/22 16:02> Medical History: Medical History Heart disease Hypertension <EAN Del Rosario - Last Filed: 12/21/22 13:04> Social History Social History: Social History Alcohol intake: current Alcohol intake frequency: holidays/special occasions only Alcohol type: hard liquor Patient Tobacco Use Status: Never used Tobacco Smoked in Last 30 Days: No Use of substances other than those prescribed or required for medical reasons: No Advance Directives: No Advance Directives Information Provided: Yes <EAN Del Rosario - Last Filed: 12/21/22 13:04> Physical Exam Vital Signs: Vital Signs: Last Vital Signs Temp 97.8 F 12/21/22 14:50 Pulse 61 12/21/22 14:50 Resp 12/21/22 14:50 BP 138/86 12/21/22 14:50 Pulse Ox 98 12/21/22 14:50 O2 Del Method Room Air 12/21/22 14:50 BMI result Body Mass Index 28.5 <EAN Del Rosario - Last Filed: 12/21/22 13:04> Vital Signs: Last Vital Signs Temp 97.8 F 12/21/22 14:50 Pulse 61 12/21/22 14:50 Resp 13 12/21/22 14:50 BP 138/86 12/21/22 14:50 Pulse Ox 98 12/21/22 14:50 O2 Del Method Room Air 12/21/22 14:50 BMI result Body Mass Index 28.5 <Akiko Bundy, [place] - Last Filed: 12/21/22 16:02> Const: General: cooperative, no acute distress, alert and awake <Akikomaggy Wheel[place]yer [place] - Last Filed: 12/21/22 16:02> Nutritional Appearance: well nourished <Akiko [place] - Last Filed: 12/21/22 16:02> Orientation/consciousness: patient oriented x3 <Akiko Niharika [place] - Last Filed: 12/21/22 16:02> Limitations: no limitations <Akiko [place] - Last Filed: 12/21/22 16:02> HEENT: Head: Yes normal to inspection and Yes atraumatic <Akiko [place] - Last Filed: 12/21/22 16:02> Ears: hearing grossly normal bilaterally and external ears normal <Akiko [place]yer [place] - Last Filed: 12/21/22 16:02> General nose exam: Normal external nose present, no nasal discharge noted and no epistaxis <Akiko Niharika [place] - Last Filed: 12/21/22 16:02> Face and sinus: Yes normal facial exam, No abrasion and No laceration <Akiko [place]yer [place] - Last Filed: 12/21/22 16:02> Mouth: Normal oral and palatal mucosa present, no drooling and no muffled voice <Akiko [place]yer [place] - Last Filed: 12/21/22 16:02> Eyes: General: appearance normal, both eyes and all related structures <Akiko Bundy [place] - Last Filed: 12/21/22 16:02> Periorbital: periorbital findings normal <Akiko Niharika [place] - Last Filed: 12/21/22 16:02> Eyelids: Yes eyelids normal <Akiko Niharika [place] - Last Filed: 12/21/22 16:02> Conjunctivae: conjunctivae normal <Akiko Niharika [place] - Last Filed: 12/21/22 16:02> Pupils: Equal, round and reactive pupils present <Akiko Niharika [place] - Last Filed: 12/21/22 16:02> EOM: EOMs intact bilaterally <Akiko Bundy [place] - Last Filed: 12/21/22 16:02> Neck: Neck: Yes normal visual inspection, Yes full ROM and Yes no lymphadenopathy <Akiko Bundy [place] - Last Filed: 12/21/22 16:02> Chest: Chest palpation & inspection: normal inspection of the chest <Akiko Bundy [place] - Last Filed: 12/21/22 16:02> Resp: Effort & Inspection: normal respiratory effort and able to speak in complete sentences <Akiko Bundy [place] - Last Filed: 12/21/22 16:02> GI: Inspection: Yes normal to inspection <Akiko Bundy [place] - Last Filed: 12/21/22 16:02> Palpation (GI): Soft to palpation, not firm, nontender and no guarding <Akiko Bundy [place] - Last Filed: 12/21/22 16:02> Neuro: General: patient oriented x3 and moves all extremities <Akiko Bundy [place] - Last Filed: 12/21/22 16:02> Cranial nerves: Yes Equal, round and reactive pupils present <Akiko Bundy [place] - Last Filed: 12/21/22 16:02> Cognition (Neuro): normal cognition <Akiko Bundy [place] - Last Filed: 12/21/22 16:02> Motor exam (neuro): 5/5 motor strength present throughout <Akiko Bundy [place] - Last Filed: 12/21/22 16:02> Sensory Exam: Normal double simultaneous stimulation for sensation <Akiko Bundy [place] - Last Filed: 12/21/22 16:02> Coordination: [id number] test normal <Akiko Bundy [place] - Last Filed: 12/21/22 16:02> Extrem: General: Yes normal to inspection, Yes full ROM and Yes capillary refill normal <Akiko Bundy [place] - Last Filed: 12/21/22 16:02> Psych: Appearance: grossly normal <Akiko Bundy [place] - Last Filed: 12/21/22 16:02> Mental Status: mental status grossly normal <Akiko Bundy [place] - Last Filed: 12/21/22 16:02> Affect: normal affect <Akiko Bundy [place] - Last Filed: 12/21/22 16:02> Attitude: cooperative <Akiko Bundy [place] - Last Filed: 12/21/22 16:02> Thought process: Normal thought process present <EAN Conteh - Last Filed: 12/21/22 16:02> Thought content: Normal thought content present <EAN Conteh - Last Filed: 12/21/22 16:02> Insight: Good insight present (Psych) <EAN Conteh - Last Filed: 12/21/22 16:02> Course Course Course Narrative: RME - 42 y/o male with history of CAD on ASA, lipitor and toprol, otherwise healthy and very active who presents to the ER for evaluation of daily SOB/STEIN followed by chest tightness for the last 4-6 weeks. Tightness is in various places across the chest does not radiate, 5/10. Hard to take a deep breath. Has worsening symptoms after eating as well w/ bloating and clamminess. He saw his Preparation Center Coordinator who said it wasn't his heart. Symptoms persisted so he came to the ER. VSS in triage, he appears well. Exam is benign Plan: cardiac workup, CXR, EKG <EAN Del Rosario - Last Filed: 12/21/22 13:04> Medications Administered Discontinued Medications Generic Name Dose Route Start Last Admin Trade Name Freq PRN Reason Stop Dose Admin Iohexol 100 ml 12/21/22 14:40 12/21/22 14:40 Iohexol 350 Mg/Ml 100 Ml Infus..Btl IV 12/21/22 14:41 85 ml ONCE ONE Administration Pantoprazole Sodium 40 mg 12/21/22 14:11 12/21/22 14:30 Pantoprazole Sodium 40 Mg/10 Ml Vial IVPUSH 12/21/22 14:12 40 mg ONCE ONE Administration <EAN Del Rosario - Last Filed: 12/21/22 13:04> Medications Administered Discontinued Medications Generic Name Dose Route Start Last Admin Trade Name Freq PRN Reason Stop Dose Admin Iohexol 100 ml 12/21/22 14:40 12/21/22 14:40 Iohexol 350 Mg/Ml 100 Ml Infus..Btl IV 12/21/22 14:41 85 ml ONCE ONE Administration Pantoprazole Sodium 40 mg 12/21/22 14:11 12/21/22 14:30 Pantoprazole Sodium 40 Mg/10 Ml Vial IVPUSH 12/21/22 14:12 40 mg ONCE ONE Administration <EAN Conteh - Last Filed: 12/21/22 16:02> Medical Decision Making Medical Decision Making [facility] Narrative: Patient is a 42 year old assigned male at with a history of cardiac disease presenting to the emergency department today with epigastric pain. Patient's physical exam was unremarkable. Patient's blood work was unremarkable. Patient's EKG was unremarkable. Patient's chest x-ray and abdominal CT showed no acute process. I explained my physical exam findings as well as all test results to the patient. I answered all questions asked by the patient. I stressed the importance of the patient taking his medication as prescribed. I stressed the importance of the patient following up with his primary care provider, a GI specialist, and his pierogi maker. I stressed the importance of the patient returning to the emergency department immediately if his symptoms were to worsen or if he were to develop any dizziness, shortness of breath, difficulty breathing, chest pain, blurry vision, loss of vision, nausea, vomiting, abdominal pain, fever, chills, back pain, or any other complaints. Patient verbalized agreement and understanding with this treatment plan and discharge. <EAN Conteh - Last Filed: 12/21/22 16:02> Differential Diagnosis Differential Diagnoses: The differential diagnosis associated with the presentation includes <EAN Conteh - Last Filed: 12/21/22 16:02> epigastric pain <EAN Conteh - Last Filed: 12/21/22 16:02> Lab Data [facility] Lab Attestation statement: I reviewed the patient's lab results. <EAN Conteh - Last Filed: 12/21/22 16:02> Result Diagrams: 12/21/22 13:33 12/21/22 13:33 <EAN Del Rosario - Last Filed: 12/21/22 13:04> Labs: Lab Results 12/21/22 12/21/22 12/21/22 Range/Units 13:33 13:33 13:33 WBC 3.6 L (4.8-10.8) X10*3/uL RBC 4.33 L (4.60-5.80) X10*6/uL Hgb 14.1 (14.0-18.0) g/dl Hct 42.2 (42.0-52.0) % MCV 97.5 (80.0-98.0) fL MCH 32.6 (27.0-33.0) pg MCHC 33.4 (31.0-36.0) g/dl RDW 12.1 (11.0-16.0) % Plt Count 237 (160-400) X10*3/uL MPV 9.5 (9.4-12.4) fL Immature Gran % (Auto) 0.3 (0.0-0.4) % Neut % (Auto) 40.9 L (45-73) % Lymph % (Auto) 44.5 H (20-40) % [place] % (Auto) 8.5 (2-11) % Eos % (Auto) 4.4 H (0-4) % Baso % (Auto) 1.4 (0-2) % Lymph # (Auto) 1.6 (1.2-4.9) X10*3/uL [place] # (Auto) 0.3 (0.1-1.2) X10*3/uL Eos # (Auto) 0.2 (0.0-0.4) X10*3/uL Baso # (Auto) 0.1 (0.0-0.2) X10*3/uL Abs Immat Gran (auto) 0.01 (0.00-0.03) X10*3/uL Absolute Neuts (auto) 1.5 L (2.0-8.3) x10*3/uL Absolute Nucleated RBC 0.000 (0.0-0.012) X10*3/uL Nucleated RBC % (auto) 0.0 (0.0-0.2) /100WBC PT (10.0-13.1) SEC INR (0.9-1.1) APTT (26.0-36.4) SEC Sodium 139 (135-145) mmol/L Potassium 4.3 (3.3-5.1) mmol/L Chloride 106 (96-108) mmol/L Carbon Dioxide 29 (22-29) mmol/L Anion Gap 8 L (12-20) BUN 18 H (9-16) mg/dL Creatinine 1.09 (0.5-1.4) mg/dL Estim Creat Clear Calc 105.7 Estimated GFR > 60 Random Glucose 90 (60-115) mg/dL Calcium 9.4 (8.4-10.2) mg/dL Magnesium 1.8 (1.6-2.6) mg/dL Total Bilirubin 0.7 (0.0-1.0) mg/dL Direct Bilirubin 0.2 (0.0-0.5) mg/dL AST 29 (5-37) U/L ALT 37 (0-40) U/L Alkaline Phosphatase 46 (39-117) U/L Troponin I High Sens < 2.7 (<3.5-35.0) ng/L Total Protein 6.7 (6.5-8.0) g/dL Albumin 4.5 (3.5-5.0) g/dL 12/21/22 Range/Units 13:33 WBC (4.8-10.8) X10*3/uL RBC (4.60-5.80) X10*6/uL Hgb (14.0-18.0) g/dl Hct (42.0-52.0) % MCV (80.0-98.0) fL MCH (27.0-33.0) pg MCHC (31.0-36.0) g/dl RDW (11.0-16.0) % Plt Count (160-400) X10*3/uL MPV (9.4-12.4) fL Immature Gran % (Auto) (0.0-0.4) % Neut % (Auto) (45-73) % Lymph % (Auto) (20-40) % [place] % (Auto) (2-11) % Eos % (Auto) (0-4) % Baso % (Auto) (0-2) % Lymph # (Auto) (1.2-4.9) X10*3/uL [place] # (Auto) (0.1-1.2) X10*3/uL Eos # (Auto) (0.0-0.4) X10*3/uL Baso # (Auto) (0.0-0.2) X10*3/uL Abs Immat Gran (auto) (0.00-0.03) X10*3/uL Absolute Neuts (auto) (2.0-8.3) x10*3/uL Absolute Nucleated RBC (0.0-0.012) X10*3/uL Nucleated RBC % (auto) (0.0-0.2) /100WBC PT 11.9 (10.0-13.1) SEC INR 1.0 (0.9-1.1) APTT 34.8 (26.0-36.4) SEC Sodium (135-145) mmol/L Potassium (3.3-5.1) mmol/L Chloride (96-108) mmol/L Carbon Dioxide (22-29) mmol/L Anion Gap (12-20) BUN (9-16) mg/dL Creatinine (0.5-1.4) mg/dL Estim Creat Clear Calc Estimated GFR Random Glucose (60-115) mg/dL Calcium (8.4-10.2) mg/dL Magnesium (1.6-2.6) mg/dL Total Bilirubin (0.0-1.0) mg/dL Direct Bilirubin (0.0-0.5) mg/dL AST (5-37) U/L ALT (0-40) U/L Alkaline Phosphatase (39-117) U/L Troponin I High Sens (<3.5-35.0) ng/L Total Protein (6.5-8.0) g/dL Albumin (3.5-5.0) g/dL <EAN Del Rosario - Last Filed: 12/21/22 13:04> Lab Results 12/21/22 12/21/22 12/21/22 Range/Units 13:33 13:33 13:33 WBC 3.6 L (4.8-10.8) X10*3/uL RBC 4.33 L (4.60-5.80) X10*6/uL Hgb 14.1 (14.0-18.0) g/dl Hct 42.2 (42.0-52.0) % MCV 97.5 (80.0-98.0) fL MCH 32.6 (27.0-33.0) pg MCHC 33.4 (31.0-36.0) g/dl RDW 12.1 (11.0-16.0) % Plt Count 237 (160-400) X10*3/uL MPV 9.5 (9.4-12.4) fL Immature Gran % (Auto) 0.3 (0.0-0.4) % Neut % (Auto) 40.9 L (45-73) % Lymph % (Auto) 44.5 H (20-40) % [place] % (Auto) 8.5 (2-11) % Eos % (Auto) 4.4 H (0-4) % Baso % (Auto) 1.4 (0-2) % Lymph # (Auto) 1.6 (1.2-4.9) X10*3/uL [place] # (Auto) 0.3 (0.1-1.2) X10*3/uL Eos # (Auto) 0.2 (0.0-0.4) X10*3/uL Baso # (Auto) 0.1 (0.0-0.2) X10*3/uL Abs Immat Gran (auto) 0.01 (0.00-0.03) X10*3/uL Absolute Neuts (auto) 1.5 L (2.0-8.3) x10*3/uL Absolute Nucleated RBC 0.000 (0.0-0.012) X10*3/uL Nucleated RBC % (auto) 0.0 (0.0-0.2) /100WBC PT (10.0-13.1) SEC INR (0.9-1.1) APTT (26.0-36.4) SEC Sodium 139 (135-145) mmol/L Potassium 4.3 (3.3-5.1) mmol/L Chloride 106 (96-108) mmol/L Carbon Dioxide 29 (22-29) mmol/L Anion Gap 8 L (12-20) BUN 18 H (9-16) mg/dL Creatinine 1.09 (0.5-1.4) mg/dL Estim Creat Clear Calc 105.7 Estimated GFR > 60 Random Glucose 90 (60-115) mg/dL Calcium 9.4 (8.4-10.2) mg/dL Magnesium 1.8 (1.6-2.6) mg/dL Total Bilirubin 0.7 (0.0-1.0) mg/dL Direct Bilirubin 0.2 (0.0-0.5) mg/dL AST 29 (5-37) U/L ALT 37 (0-40) U/L Alkaline Phosphatase 46 (39-117) U/L Troponin I High Sens < 2.7 (<3.5-35.0) ng/L Total Protein 6.7 (6.5-8.0) g/dL Albumin 4.5 (3.5-5.0) g/dL 12/21/22 Range/Units 13:33 WBC (4.8-10.8) X10*3/uL RBC (4.60-5.80) X10*6/uL Hgb (14.0-18.0) g/dl Hct (42.0-52.0) % MCV (80.0-98.0) fL MCH (27.0-33.0) pg MCHC (31.0-36.0) g/dl RDW (11.0-16.0) % Plt Count (160-400) X10*3/uL MPV (9.4-12.4) fL Immature Gran % (Auto) (0.0-0.4) % Neut % (Auto) (45-73) % Lymph % (Auto) (20-40) % [place] % (Auto) (2-11) % Eos % (Auto) (0-4) % Baso % (Auto) (0-2) % Lymph # (Auto) (1.2-4.9) X10*3/uL [place] # (Auto) (0.1-1.2) X10*3/uL Eos # (Auto) (0.0-0.4) X10*3/uL Baso # (Auto) (0.0-0.2) X10*3/uL Abs Immat Gran (auto) (0.00-0.03) X10*3/uL Absolute Neuts (auto) (2.0-8.3) x10*3/uL Absolute Nucleated RBC (0.0-0.012) X10*3/uL Nucleated RBC % (auto) (0.0-0.2) /100WBC PT 11.9 (10.0-13.1) SEC INR 1.0 (0.9-1.1) APTT 34.8 (26.0-36.4) SEC Sodium (135-145) mmol/L Potassium (3.3-5.1) mmol/L Chloride (96-108) mmol/L Carbon Dioxide (22-29) mmol/L Anion Gap (12-20) BUN (9-16) mg/dL Creatinine (0.5-1.4) mg/dL Estim Creat Clear Calc Estimated GFR Random Glucose (60-115) mg/dL Calcium (8.4-10.2) mg/dL Magnesium (1.6-2.6) mg/dL Total Bilirubin (0.0-1.0) mg/dL Direct Bilirubin (0.0-0.5) mg/dL AST (5-37) U/L ALT (0-40) U/L Alkaline Phosphatase (39-117) U/L Troponin I High Sens (<3.5-35.0) ng/L Total Protein (6.5-8.0) g/dL Albumin (3.5-5.0) g/dL <EAN Conteh Last Filed: 12/21/22 16:02> Independent Interpretation I performed an independent interpretation of an: EKG <EAN Conteh - Last Filed: 12/21/22 16:02> Interpretation: Vent. Rate: 066 BPM ? ? Atrial Rate: 066 BPM P-R Int: 182 ms? QRS Dur: 104 ms QT Int: 382 ms ? ? ? P-R-T Axes: 045 017 -04 degrees QTc Int: 400 ms ? Normal sinus rhythm Moderate voltage criteria for LVH, may be normal variant ( R in aVL , Kj product ) Inferior infarct (cited on or before 24-MAR-2022) Abnormal ECG When compared with ECG of 24-MAR-2022 17:23, Incomplete right bundle branch block is no longer Present Inverted T waves have replaced nonspecific T wave abnormality in Inferior leads DD/ 1250 <EAN Conteh - Last Filed: 12/21/22 16:02> Radiology Impression Radiologist Impression: My interpretation is in agreement with the radiologist's impression of these imaging studies. EXAMINATION: XR CHEST CLINICAL INFORMATION: Shortness of breath COMPARISON: 03/24/2022 TECHNIQUE: 2 views of the chest were obtained. FINDINGS: No significant abnormality is noted involving the heart, lungs, mediastinum, bony thorax or soft tissues. XR/XR chest 2V IMPRESSION: Unremarkable examination. Dictated By: Artem Pan MD Signed By: Electronically signed by Artem Pan MD 12/21/22 1353 EXAMINATION: CT ABDOMEN AND PELVIS WITH CONTRAST? CLINICAL INFORMATION: Abdominal pain.? COMPARISON: CT abdomen and pelvis 10/08/20. TECHNIQUE: Multidetector volumetric images were obtained from the superior aspect of the liver through the pubic symphysis following administration 85 mL of Omnipaque 350 intravenous contrast. Sagittal and coronal reformatted images were obtained on the technologist's workstation.? Oral contrast: No This CT examination was performed using dose optimization techniques as appropriate, variously including the following: *Automated exposure control *Adjustment of mA and/or kV according to patient size (this includes techniques or standardized protocols for targeted exams where dose is matched to indication/reason for exam; i.e. extremities or head) *Use of iterative reconstruction technique DLP: 581. mGy-cm FINDINGS: LUNG BASES: The visualized lung bases are unremarkable.? LIVER, GALLBLADDER, AND BILIARY TREE: The liver is normal in size, shape, and attenuation. No focal hepatic lesion or biliary ductal dilatation is present. The gallbladder is unremarkable with no evidence of radiopaque gallstones, gallbladder wall thickening, or obvious pericholecystic inflammatory changes.? PANCREAS: No discrete pancreatic mass. No ductal dilatation.? SPLEEN: Normal.? ADRENAL GLANDS: No adrenal mass.? KIDNEYS AND URETERS: Stable bilobed or two adjacent simple cysts in the left kidney that are simple in density. No follow-up imaging is recommended. No nephrolithiasis or hydronephrosis.? BLADDER: Unremarkable.? GASTROINTESTINAL TRACT: The small bowel is normal in caliber. No mesenteric adenopathy. Retrocecal appendix appears normal. The large bowel is normal in caliber. No diverticulosis or evidence of colitis. ABDOMINAL WALL: Surgical clips in the right inguinal region. No hernia. ? LYMPH NODES: No lymphadenopathy. VASCULAR: No aortic aneurysm.. PELVIC VISCERA: The prostate and seminal vesicles are unremarkable.? OSSEOUS STRUCTURES: No suspicious osseous abnormality.? CT/CT abdomen pelvis w IV con IMPRESSION: No acute findings. ? Fleischner guidelines were followed. Dictated By: Anurag Kumar MD Signed By: Electronically signed by Anurag Kumar MD 12/21/22 1545 <EAN Conteh - Last Filed: 12/21/22 16:02> Discharge Plan Discharge Clinical Impression: Epigastric pain <EAN Del Rosario - Last Filed: 12/21/22 13:04> Patient Disposition: Home, Self-Care <EAN Del Rosario - Last Filed: 12/21/22 13:04> Instructions: Epigastric Pain (ED) <EAN Del Rosario - Last Filed: 12/21/22 13:04> Additional Instructions: Follow up with your primary care provider, a GI specialist, and your pierogi maker. Return to the emergency department immediately if your symptoms worsen or if you develop any dizziness, shortness of breath, difficulty breathing, chest pain, blurry vision, loss of vision, nausea, vomiting, abdominal pain, fever, chills, back pain, or any other complaints. <EAN Del Rosario - Last Filed: 12/21/22 13:04> Prescriptions: No Action amoxicillin-pot clavulanate 875-125 mg tablet 1 tab PO Q12H 10 Days Qty: 20 0RF <EAN Del Rosario - Last Filed: 12/21/22 13:04> Referrals: [facility] [Provider Group] (Call to establish and follow up with a GI specialist. ) Sammie Rivera MD [Primary Care Provider] - <EAN Del Rosario - Last Filed: 12/21/22 13:04> Print Language: Citizen Of [place] <EAN Del Rosario - Last Filed: 12/21/22 13:04>
[2022-12-21 13:24] VITALS: BP 140/86; PULSE 70; RESP 20; TEMP 36.8; O2SAT 97; BMI 28.5
[2022-12-21 13:37] LABS: MANUAL DIFF FLAG NO
[2022-12-21 13:38] LABS: Basophils Absolute Auto 0.1 X10*3/uL (0.0-0.2); Basophils Percent Auto 1.4 % (0-2); Eosinophils Absolute Auto 0.2 X10*3/uL (0.0-0.4); Eosinophils Percent Auto 4.4 % (0-4); Hematocrit 42.2 % (42.0-52.0); Hemoglobin 14.1 g/dl (14.0-18.0); Imm Gran Abs Auto 0.01 X10*3/uL (0.00-0.03); Imm Gran Pct Auto 0.3 % (0.0-0.4); Lymphocytes Absolute Auto 1.6 X10*3/uL (1.2-4.9); Lymphocytes Percent Auto 44.5 % (20-40); Mean Corpuscular HGB Conc 33.4 g/dl (31.0-36.0); Mean Corpuscular Hemoglobin 32.6 pg (27.0-33.0); Mean Corpuscular Volume 97.5 fL (80.0-98.0); Mean Platelet Volume 9.5 fL (9.4-12.4); Monocytes Absolute Auto 0.3 X10*3/uL (0.1-1.2); Monocytes Percent Auto 8.5 % (2-11); Neutrophils Absolute Auto 1.5 x10*3/uL (2.0-8.3); Neutrophils Percent Auto 40.9 % (45-73); Platelet Count 237 X10*3/uL (160-400); Red Blood Count 4.33 X10*6/uL (4.60-5.80); Red Cell Distribution Width 12.1 % (11.0-16.0); White Blood Count 3.6 X10*3/uL (4.8-10.8)
[2022-12-21 13:45] LABS: Prothrombin Time 11.9 SEC (10.0-13.1)
[2022-12-21 13:47] LABS: Partial Thromboplastin Time 34.8 SEC (26.0-36.4)
[2022-12-21 13:58] VITALS: BP 146/89; PULSE 67; RESP 16; TEMP 36.4; O2SAT 98
[2022-12-21 14:07] LABS: Troponin-I High Sensitivity < 2.7 ng/L (<3.5-35.0)
[2022-12-21 14:10] LABS: Alanine Aminotransferase 37 U/L (0-40); Albumin Level 4.5 g/dL (3.5-5.0); Alkaline Phosphatase 46 U/L (39-117); Anion Gap 8 (12-20); Aspartate Amino Transferase 29 U/L (5-37); Bilirubin Direct 0.2 mg/dL (0.0-0.5); Bilirubin Total 0.7 mg/dL (0.0-1.0); Blood Urea Nitrogen 18 mg/dL (9-16); Calcium 9.4 mg/dL (8.4-10.2); Carbon Dioxide 29 mmol/L (22-29); Chloride 106 mmol/L (96-108); Creatinine Clr Calc Pharmacy 105.7; Estimated Glomerular Filt Rate > 60; Glucose Random 90 mg/dL (60-115); Magnesium 1.8 mg/dL (1.6-2.6); Potassium 4.3 mmol/L (3.3-5.1); Sodium 139 mmol/L (135-145); Total Protein 6.7 g/dL (6.5-8.0)
[2022-12-21] MEDS: Pantoprazole Sodium 40 MG/10 ML VIAL IVPUSH (14:30)
[2022-12-21] MEDS: iohexoL 350 MG/ML 100 ML INFUS..BTL IV (14:40)
[2022-12-21 14:50] VITALS: BP 138/86; PULSE 61; RESP 13; TEMP 36.6; O2SAT 98
== END 2022-12-21 16:20 | disposition home or self-care (01) ==
PROVIDERS: Physician Assistant; Emergency Provider Emergency Medicine; PCP Internal Medicine
DX: R10.13 Epigastric pain (principal); I10 Essential (primary) hypertension
CPT/HCPCS: 36415; 71046; 74177; 80048; 80076; 83735; 84484; 85025; 85610; 85730; 93005; 96374; 99284; 99285; Q9967

== ENCOUNTER 2023-01-26 12:36 | Emergency (ER) | payer OTHER, SELFPAY ==
--- NOTE | ~2023-01-26 | XR_ITS ---
EXAMINATION: XR CHEST CLINICAL INFORMATION: Chest tightness COMPARISON: December 21, 2022 TECHNIQUE: AP portable view of the chest was obtained. FINDINGS: No significant abnormality is noted involving the heart, lungs, mediastinum, bony thorax or soft tissues. XR/XR chest 1V IMPRESSION: No acute disease.
[2023-01-26 12:40] VITALS: BP 131/72; PULSE 79; RESP 14; TEMP 36.6; O2SAT 97; BMI 33.5
--- NOTE | 2023-01-26 12:44 | ECG_ITS ---
Test Reason : CHEST TIGHTNESS Blood Pressure : / mmHG Vent. Rate : 067 BPM Atrial Rate : 067 BPM P-R Int : 176 ms QRS Dur : 102 ms QT Int : 400 ms P-R-T Axes : 073 -06 042 degrees QTc Int : 422 ms Poor data quality Normal sinus rhythm Incomplete right bundle branch block Borderline ECG When compared with ECG of 21-DEC-2022 12:50, Poor data quality in current ECG precludes serial comparison Referred By: Bandar Moore Electronically Signed By:Nate Benitez
--- NOTE | 2023-01-26 12:46 | ED.GENADULT ---
HPI - General Adult General Chief complaint: Dyspnea Stated complaint: Diff breahte ,SOB, CP Time Seen by Provider: 01/26/23 13:27 Source: patient Mode of arrival: ambulatory Limitations: no limitations History of Present Illness HPI narrative: Patient with history of asthma usually stable been noticing increased shortness of breath especially on exertion last few months was seen here earlier and 12/15 advised to follow up with die barber using inhaler as needed unable to see die barber hence he came here no chest pain no leg swelling patient had blood workup done prior to my evaluation which showed normal D-dimer and troponin chest x-ray also negative patient nonsmoker no recent gain in weight Related Data Previous Rx's Medication Instructions Recorded amoxicillin 875 mg-potassium 1 tab PO Q12H 10 days #20 tabs 03/24/22 clavulanate 125 mg tablet prednisone 20 mg tablet 40 mg PO DAILY #10 tabs 01/26/23 Allergies Allergy/AdvReac Type Severity Reaction Status Date / Time gluten [GLUTEN] Allergy Unknown DIARRHEA Unverified 05/11/20 19:29 lactose Allergy Gastrointestinal Verified 01/26/23 12:39 Upset Review of Systems Review of Systems: Yes all other systems are reviewed and are negative [facility] Past Medical History Medical History Heart disease Hypertension Social History Social History Alcohol intake: current Alcohol intake frequency: a few times a month Alcohol type: hard liquor Patient Tobacco Use Status: Never used Tobacco Smoked in Last 30 Days: No Use of substances other than those prescribed or required for medical reasons: No Advance Directives: No Advance Directives Information Provided: Yes Physical Exam ED Vital Signs: Vital Signs - 24 hr 01/26/23 12:40 01/26/23 13:28 01/26/23 13:54 Temperature 97.8 F 97.5 F Pulse Rate 79 67 67 Respiratory Rate 14 16 16 Blood Pressure 131/72 148/88 H Pulse Oximetry 97 98 97 Oxygen Delivery Method Room Air Room Air Room Air BMI result Body Mass Index 33.5 Appearance: Alert. Oriented X3. No acute distress. Eyes: PERRLA, No Nystagmus ENT: Pharynx normal. Oral Mucosa moist Neck: Normal inspection. Neck supple. CVS: Normal heart rate and rhythm. Pulses normal. Respiratory: No respiratory distress. Equal air entry bilateral, no wheezing/rales/rhonchi Abdomen: Soft and nontender. Bowel sounds are present, no mass palpable, no CVA tenderness Skin: Skin warm and dry. Normal skin color. Normal skin turgor. Extremities: No lower extremity edema. No calf tenderness Neuro: Oriented X 3. No motor deficit. Course Course Course Narrative: RME: 42 yold male with pmh of asthma and CO at 26 presents to the ED for chest tightness and SOB for the past 4 months. no leg swelling, recent long travel, or recent surgery. patient states mild pleurisy. patient deneis any leg swelling or calf pain. EKG, labs, and chest xray ordered Medical Decision Making Medical Decision Making MDM Narrative: Patient has stable labs negative D-dimer negative chest x-ray with chronic shortness of breath likely asthmatic will give a course of prednisone advised to follow the lung specialist Lab Data MDM Lab Attestation statement: I reviewed the patient's lab results. 01/26/23 13:05 01/26/23 13:05 Labs: Lab Results 01/26/23 01/26/23 01/26/23 Range/Units 13:05 13:05 13:05 WBC 3.6 L (4.8-10.8) X10*3/uL RBC 4.37 L (4.60-5.80) X10*6/uL Hgb 14.2 (14.0-18.0) g/dl Hct 42.4 (42.0-52.0) % MCV 97.0 (80.0-98.0) fL MCH 32.5 (27.0-33.0) pg MCHC 33.5 (31.0-36.0) g/dl RDW 12.1 (11.0-16.0) % Plt Count 207 (160-400) X10*3/uL MPV 9.6 (9.4-12.4) fL Immature Gran % (Auto) 0.6 H (0.0-0.4) % Neut % (Auto) 47.1 (45-73) % Lymph % (Auto) 37.8 (20-40) % [place] % (Auto) 9.8 (2-11) % Eos % (Auto) 3.6 (0-4) % Baso % (Auto) 1.1 (0-2) % Lymph # (Auto) 1.4 (1.2-4.9) X10*3/uL [place] # (Auto) 0.4 (0.1-1.2) X10*3/uL Eos # (Auto) 0.1 (0.0-0.4) X10*3/uL Baso # (Auto) 0.0 (0.0-0.2) X10*3/uL Abs Immat Gran (auto) 0.02 (0.00-0.03) X10*3/uL Absolute Neuts (auto) 1.7 L (2.0-8.3) x10*3/uL Absolute Nucleated RBC 0.000 (0.0-0.012) X10*3/uL Nucleated RBC % (auto) 0.0 (0.0-0.2) /100WBC PT 11.2 (10.0-13.1) SEC INR 1.0 (0.9-1.1) APTT 34.4 (26.0-36.4) SEC D-Dimer High Sensitivty NG/ML Sodium 141 (135-145) mmol/L Potassium 4.3 (3.3-5.1) mmol/L Chloride 106 (96-108) mmol/L Carbon Dioxide 27 (22-29) mmol/L Anion Gap 12 (12-20) BUN 14 (9-16) mg/dL Creatinine 0.99 (0.5-1.4) mg/dL Estim Creat Clear Calc 114.9 Estimated GFR > 60 Random Glucose 90 (60-115) mg/dL Calcium 9.2 (8.4-10.2) mg/dL Total Bilirubin 0.7 (0.0-1.0) mg/dL AST 25 (5-37) U/L ALT 40 (0-40) U/L Alkaline Phosphatase 47 (39-117) U/L Troponin I High Sens (<3.5-35.0) ng/L B-Natriuretic Peptide (<100) pg/mL Total Protein 6.7 (6.5-8.0) g/dL Albumin 4.3 (3.5-5.0) g/dL 01/26/23 01/26/23 01/26/23 Range/Units 13:05 13:05 13:05 WBC (4.8-10.8) X10*3/uL RBC (4.60-5.80) X10*6/uL Hgb (14.0-18.0) g/dl Hct (42.0-52.0) % MCV (80.0-98.0) fL MCH (27.0-33.0) pg MCHC (31.0-36.0) g/dl RDW (11.0-16.0) % Plt Count (160-400) X10*3/uL MPV (9.4-12.4) fL Immature Gran % (Auto) (0.0-0.4) % Neut % (Auto) (45-73) % Lymph % (Auto) (20-40) % [place] % (Auto) (2-11) % Eos % (Auto) (0-4) % Baso % (Auto) (0-2) % Lymph # (Auto) (1.2-4.9) X10*3/uL [place] # (Auto) (0.1-1.2) X10*3/uL Eos # (Auto) (0.0-0.4) X10*3/uL Baso # (Auto) (0.0-0.2) X10*3/uL Abs Immat Gran (auto) (0.00-0.03) X10*3/uL Absolute Neuts (auto) (2.0-8.3) x10*3/uL Absolute Nucleated RBC (0.0-0.012) X10*3/uL Nucleated RBC % (auto) (0.0-0.2) /100WBC PT (10.0-13.1) SEC INR (0.9-1.1) APTT (26.0-36.4) SEC D-Dimer High Sensitivty < 150 NG/ML Sodium (135-145) mmol/L Potassium (3.3-5.1) mmol/L Chloride (96-108) mmol/L Carbon Dioxide (22-29) mmol/L Anion Gap (12-20) BUN (9-16) mg/dL Creatinine (0.5-1.4) mg/dL Estim Creat Clear Calc Estimated GFR Random Glucose (60-115) mg/dL Calcium (8.4-10.2) mg/dL Total Bilirubin (0.0-1.0) mg/dL AST (5-37) U/L ALT (0-40) U/L Alkaline Phosphatase (39-117) U/L Troponin I High Sens < 2.7 (<3.5-35.0) ng/L B-Natriuretic Peptide 18 (<100) pg/mL Total Protein (6.5-8.0) g/dL Albumin (3.5-5.0) g/dL Discharge Plan Discharge Clinical Impression: Asthma with exacerbation Patient Disposition: Home, Self-Care Instructions: Asthma (ED) Additional Instructions: Shortness of breath likely from reactive asthma Take course of prednisone as prescribed Continue albuterol inhaler 2 puffs before exercise and every 6 hours as needed Follow up with [facility]heed specialist Prescriptions: New prednisone 20 mg tablet 40 mg PO DAILY Qty: 10 0RF No Action amoxicillin-pot clavulanate 875-125 mg tablet 1 tab PO Q12H 10 Days Qty: 20 0RF Referrals: Skyler Rao MD [Physician] - 1 week Interventions: ED Discharge Assessment Last Done: 01/26/23 14:39 Discharge Date/Time: 01/26/23 14:39
[2023-01-26 13:13] LABS: MANUAL DIFF FLAG NO
[2023-01-26 13:14] LABS: Basophils Percent Auto 1.1 % (0-2); Eosinophils Absolute Auto 0.1 X10*3/uL (0.0-0.4); Eosinophils Percent Auto 3.6 % (0-4); Hematocrit 42.4 % (42.0-52.0); Hemoglobin 14.2 g/dl (14.0-18.0); Imm Gran Abs Auto 0.02 X10*3/uL (0.00-0.03); Imm Gran Pct Auto 0.6 % (0.0-0.4); Lymphocytes Absolute Auto 1.4 X10*3/uL (1.2-4.9); Lymphocytes Percent Auto 37.8 % (20-40); Mean Corpuscular HGB Conc 33.5 g/dl (31.0-36.0); Mean Corpuscular Hemoglobin 32.5 pg (27.0-33.0); Mean Platelet Volume 9.6 fL (9.4-12.4); Monocytes Absolute Auto 0.4 X10*3/uL (0.1-1.2); Monocytes Percent Auto 9.8 % (2-11); Neutrophils Absolute Auto 1.7 x10*3/uL (2.0-8.3); Neutrophils Percent Auto 47.1 % (45-73); Platelet Count 207 X10*3/uL (160-400); Red Blood Count 4.37 X10*6/uL (4.60-5.80); Red Cell Distribution Width 12.1 % (11.0-16.0); White Blood Count 3.6 X10*3/uL (4.8-10.8)
[2023-01-26 13:19] LABS: Prothrombin Time 11.2 SEC (10.0-13.1)
[2023-01-26 13:22] LABS: Partial Thromboplastin Time 34.4 SEC (26.0-36.4)
[2023-01-26 13:23] LABS: D Dimer High Sensitivity < 150 NG/ML
[2023-01-26 13:28] VITALS: BP 148/88; PULSE 67; RESP 16; TEMP 36.4; O2SAT 98
[2023-01-26 13:33] LABS: Alanine Aminotransferase 40 U/L (0-40); Albumin Level 4.3 g/dL (3.5-5.0); Alkaline Phosphatase 47 U/L (39-117); Anion Gap 12 (12-20); Aspartate Amino Transferase 25 U/L (5-37); Bilirubin Total 0.7 mg/dL (0.0-1.0); Blood Urea Nitrogen 14 mg/dL (9-16); Calcium 9.2 mg/dL (8.4-10.2); Carbon Dioxide 27 mmol/L (22-29); Chloride 106 mmol/L (96-108); Creatinine Clr Calc Pharmacy 114.9; Estimated Glomerular Filt Rate > 60; Glucose Random 90 mg/dL (60-115); Potassium 4.3 mmol/L (3.3-5.1); Sodium 141 mmol/L (135-145); Total Protein 6.7 g/dL (6.5-8.0)
[2023-01-26 13:37] LABS: B Type Natriuretic Peptide 18 pg/mL (<100)
[2023-01-26 13:41] LABS: Troponin-I High Sensitivity < 2.7 ng/L (<3.5-35.0)
--- NOTE | 2023-01-26 13:50 | PC.NURSE ---
pt AOx4, reporting chest tightness/ pressure, SOB x4 months. Pt was seen here last month for the same symptoms. symptoms persist and pt is waiting for specialist appointmnet. denies pain, report discomfort as tightness/pressure symptoms mostly on exertion
[2023-01-26 13:54] VITALS: PULSE 67; RESP 16; O2SAT 97
== END 2023-01-26 14:39 | disposition home or self-care (01) ==
PROVIDERS: Physician Assistant; Emergency Provider Internal Medicine; PCP Internal Medicine
DX: J45.901 Unspecified asthma with (acute) exacerbation (principal); R06.02 Shortness of breath; R07.89 Other chest pain; R94.31 Abnormal electrocardiogram [ECG] [EKG]; Z79.899 Other long term (current) drug therapy
CPT/HCPCS: 36415; 71045; 80053; 83880; 84484; 85025; 85379; 85610; 85730; 93005; 99283; 99284

== ENCOUNTER 2023-04-28 15:18 | Emergency (ER) | payer OTHER, SELFPAY ==
--- NOTE | ~2023-04-28 | XR_ITS ---
EXAMINATION: XR CHEST CLINICAL INFORMATION: Chest pain, dyspnea COMPARISON: 01/26/2023 TECHNIQUE: 2 views of the chest were obtained. FINDINGS: The lungs are clear with no focal consolidation. No evidence of pneumothorax, pulmonary edema, or pleural effusions. The cardiomediastinal silhouette is unremarkable. No acute osseous findings. XR/XR chest 2V IMPRESSION: No acute cardiopulmonary findings.
--- NOTE | ~2023-04-28 | CT_ITS ---
EXAMINATION: CT ANGIOGRAM CHEST CLINICAL INFORMATION: History of aneurysm COMPARISON: None. TECHNIQUE: Multiple axial images were obtained through the chest after the administration of 70 mL of intravenous 350. Images were evaluated on independent dedicated 3-D workstation and 3-D images were reconstructed with concurrent radiologist supervision and subsequently interpreted. This CT examination was performed using dose optimization techniques as appropriate, variously including the following: *Automated exposure control *Adjustment of mA and/or kV according to patient size (this includes techniques or standardized protocols for targeted exams where dose is matched to indication/reason for exam; i.e. extremities or head) *Use of iterative reconstruction technique DLP: 429 mGy-cm FINDINGS: VASCULAR FINDINGS: Heart: Normal in size. Coronary artery calcifications present. Aorta: No aneurysm or dissection of the thoracic aorta. No penetrating atheromatous ulcer. Ascending Thoracic Aorta (largest diameter): 30.3 mm Proximal descending Thoracic Aorta (at level of main PA): 27.2 mm Distal descending Thoracic Aorta : 23.3 mm NONVASCULAR FINDINGS: Thyroid Gland: The visualized thyroid gland is normal. Lymph Nodes: No supraclavicular, axillary, mediastinal or hilar lymphadenopathy is identified. Airways: The trachea and central bronchi are normal. Lungs: No airspace consolidation. No suspicious nodules or masses. Hypoventilatory changes at the bases. Pleura: No pleural effusion. No pneumothorax. Upper Abdomen: Left interpolar cortical renal cyst measuring 1.7 cm; no follow-up needed. Soft Tissues/Musculoskeletal: No acute fracture or focal osseous lesion. CT/CT angio chest aorta IMPRESSION: No thoracic aortic aneurysm. Fleischner guidelines were followed.
[2023-04-28 15:21] VITALS: BP 146/80; PULSE 75; RESP 18; TEMP 36.7; O2SAT 97; BMI 31.0
--- NOTE | 2023-04-28 15:21 | ED_ITS ---
HPI - General Adult General Chief complaint: Chest Pain Stated complaint: Chest pain/ tingling left arm/sob/diff breathing Time Seen by Provider: 04/28/23 16:13 Source: patient Mode of arrival: ambulatory Limitations: no limitations History of Present Illness HPI narrative: Patient with history of hypertension history of coronary artery dissection at age of 25, ascending aortic aneurysm followed by cmm technician last echo was 01/14 on baby aspirin comes here for episode of palpitation followed by chest pain for last 2 days lasting for few seconds noticed palpitation only once but still having dull aching pain on the right side of the chest no syncope no dizziness no diaphoresis no headache with this pain is different than when he had coronary artery dissection no history of palpitation in the past chest pain felt like pressure localized to the right upper chest no radiation get worse with deep breaths Related Data Previous Rx's Medication Instructions Recorded amoxicillin 875 mg-potassium 1 tab PO Q12H 10 days #20 tabs 03/24/22 clavulanate 125 mg tablet prednisone 20 mg tablet 40 mg PO DAILY #10 tabs 01/26/23 Allergies Allergy/AdvReac Type Severity Reaction Status Date / Time gluten [GLUTEN] Allergy Unknown DIARRHEA Verified 04/28/23 15:23 lactose Allergy Gastrointestinal Verified 04/28/23 15:23 Upset Review of Systems Review of Systems: Yes all other systems are reviewed and are negative PENDING SALE TO [facility] Past Medical History Medical History Heart disease Hypertension Social History Social History Alcohol intake: current Alcohol intake frequency: a few times a month Alcohol type: hard liquor Patient Tobacco Use Status: Never used Tobacco Smoked in Last 30 Days: No Use of substances other than those prescribed or required for medical reasons: No Advance Directives: No Advance Directives Information Provided: No Physical Exam ED Vital Signs: Vital Signs - 24 hr 04/28/23 15:21 04/28/23 16:02 Temperature 98.0 F Pulse Rate 75 63 Respiratory Rate 18 14 Blood Pressure 146/80 H 129/67 Pulse Oximetry 97 96 Oxygen Delivery Method Room Air Room Air BMI result Body Mass Index 31.0 Appearance: Alert. Oriented X3. No acute distress. Eyes: PERRLA, No Nystagmus ENT: Pharynx normal. Oral Mucosa moist Neck: Normal inspection. Neck supple. CVS: Normal heart rate and rhythm. Pulses normal. No murmur/rub or gallop no chest wall tenderness Respiratory: No respiratory distress. Equal air entry bilateral, no wheezing/rales/rhonchi Abdomen: Soft and nontender. Bowel sounds are present, no mass palpable, no CVA tenderness Skin: Skin warm and dry. Normal skin color. Normal skin turgor. Extremities: No lower extremity edema. No calf tenderness Neuro: Oriented X 3. No motor deficit. No sensory deficit.No cerebellar signs , cranial nerves II-XII intact Course Course Course Narrative: This is a rapid medical exam: Additional HPI, ROS, PE not included below will be deferred to primary provider. Patient is a 43-year-old male with history of aortic aneurism and CAD presenting to the emergency department with complaint of chest pain Friday night. Also reports tingling and clamminess to arms and hands that night, chest pain has persisted since that time. Chest pain worse with exertion, c/o dyspnea on exertion. Symptoms began after going for a run on Friday. Sees Dr. Fisher at [facility]. Has echo scheduled for next month, states had imaging of his aorta earlier this year. Plan: EKG, labs, CXR Medications Administered Discontinued Medications Generic Name Dose Route Start Last Admin Trade Name Freq PRN Reason Stop Dose Admin Iohexol 100 ml 04/28/23 17:30 04/28/23 17:31 Iohexol 350 Mg/Ml 100 Ml Infus..Btl IV 04/28/23 17:31 70 ml ONCE ONE Administration Medical Decision Making Medical Decision Making [facility] Narrative: Patient atypical chest pain initial high sensitive troponin negative EKG without any ischemic changes will do CTA as patient has history of aortic aneurysm unlikely dissection CTA negative for aortic aneurysm discharge patient home address for his Differential Diagnosis Differential Diagnoses: The differential diagnosis associated with the presentation includes ACS/palpitations/atypical chest pain/aortic dissection/aortic aneurysm Admission/Observation Consideration of admission/observation: Escalation of care including admission/observation considered Lab Data [facility] Lab Attestation statement: I reviewed the patient's lab results. 04/28/23 15:32 04/28/23 15:32 Labs: Lab Results 04/28/23 04/28/23 04/28/23 Range/Units 15:32 15:32 15:32 WBC 4.2 L (4.8-10.8) X10*3/uL RBC 4.23 L (4.60-5.80) X10*6/uL Hgb 14.1 (14.0-18.0) g/dl Hct 41.0 L (42.0-52.0) % MCV 96.9 (80.0-98.0) fL MCH 33.3 H (27.0-33.0) pg MCHC 34.4 (31.0-36.0) g/dl RDW 12.1 (11.0-16.0) % Plt Count 242 (160-400) X10*3/uL MPV 10.1 (9.4-12.4) fL Immature Gran % (Auto) 0.2 (0.0-0.4) % Neut % (Auto) 58.8 (45-73) % Lymph % (Auto) 31.6 (20-40) % [place] % (Auto) 7.5 (2-11) % Eos % (Auto) 1.2 (0-4) % Baso % (Auto) 0.7 (0-2) % Lymph # (Auto) 1.3 (1.2-4.9) X10*3/uL [place] # (Auto) 0.3 (0.1-1.2) X10*3/uL Eos # (Auto) 0.1 (0.0-0.4) X10*3/uL Baso # (Auto) 0.0 (0.0-0.2) X10*3/uL Abs Immat Gran (auto) 0.01 (0.00-0.03) X10*3/uL Absolute Neuts (auto) 2.5 (2.0-8.3) x10*3/uL Absolute Nucleated RBC 0.000 (0.0-0.012) X10*3/uL Nucleated RBC % (auto) 0.0 (0.0-0.2) /100WBC PT (11.1-13.3) SEC INR (0.9-1.1) Sodium 141 (135-145) mmol/L Potassium 4.3 (3.3-5.1) mmol/L Chloride 108 (96-108) mmol/L Carbon Dioxide 25 (22-29) mmol/L Anion Gap 12 (12-20) BUN 12 (9-16) mg/dL Creatinine 1.07 (0.5-1.4) mg/dL Estim Creat Clear Calc 101.3 Estimated GFR > 60 Random Glucose 95 (60-115) mg/dL Calcium 9.5 (8.4-10.2) mg/dL Total Bilirubin 0.8 (0.0-1.0) mg/dL AST 25 (5-37) U/L ALT 32 (0-40) U/L Alkaline Phosphatase 46 (39-117) U/L Troponin I High Sens < 2.7 (<3.5-35.0) ng/L Total Protein 6.9 (6.5-8.0) g/dL Albumin 4.6 (3.5-5.0) g/dL 04/28/23 Range/Units 16:03 WBC (4.8-10.8) X10*3/uL RBC (4.60-5.80) X10*6/uL Hgb (14.0-18.0) g/dl Hct (42.0-52.0) % MCV (80.0-98.0) fL MCH (27.0-33.0) pg MCHC (31.0-36.0) g/dl RDW (11.0-16.0) % Plt Count (160-400) X10*3/uL MPV (9.4-12.4) fL Immature Gran % (Auto) (0.0-0.4) % Neut % (Auto) (45-73) % Lymph % (Auto) (20-40) % [place] % (Auto) (2-11) % Eos % (Auto) (0-4) % Baso % (Auto) (0-2) % Lymph # (Auto) (1.2-4.9) X10*3/uL [place] # (Auto) (0.1-1.2) X10*3/uL Eos # (Auto) (0.0-0.4) X10*3/uL Baso # (Auto) (0.0-0.2) X10*3/uL Abs Immat Gran (auto) (0.00-0.03) X10*3/uL Absolute Neuts (auto) (2.0-8.3) x10*3/uL Absolute Nucleated RBC (0.0-0.012) X10*3/uL Nucleated RBC % (auto) (0.0-0.2) /100WBC PT 13.2 (11.1-13.3) SEC INR 1.1 (0.9-1.1) Sodium (135-145) mmol/L Potassium (3.3-5.1) mmol/L Chloride (96-108) mmol/L Carbon Dioxide (22-29) mmol/L Anion Gap (12-20) BUN (9-16) mg/dL Creatinine (0.5-1.4) mg/dL Estim Creat Clear Calc Estimated GFR Random Glucose (60-115) mg/dL Calcium (8.4-10.2) mg/dL Total Bilirubin (0.0-1.0) mg/dL AST (5-37) U/L ALT (0-40) U/L Alkaline Phosphatase (39-117) U/L Troponin I High Sens (<3.5-35.0) ng/L Total Protein (6.5-8.0) g/dL Albumin (3.5-5.0) g/dL Independent Interpretation I performed an independent interpretation of an: EKG Interpretation: Normal sinus rhythm heart rate 72 beats minute LVH incomplete right bundle- branch block no acute ischemic changes Discharge Plan Discharge Clinical Impression: Atypical chest pain Patient Disposition: Home, Self-Care Instructions: Chest Pain (ED) Additional Instructions: Follow-up with your cmm technician/PCP Your CT chest negative for thoracic aortic aneurysm Continue to take baby aspirin daily Prescriptions: No Action amoxicillin-pot clavulanate 875-125 mg tablet 1 tab PO Q12H 10 Days Qty: 20 0RF prednisone 20 mg tablet 40 mg PO DAILY Qty: 10 0RF Interventions: ED Discharge Assessment Last Done: 04/28/23 18:08 Discharge Date/Time: 04/28/23 18:08
--- NOTE | 2023-04-28 15:21 | ECG_ITS ---
Test Reason : chest pain Blood Pressure : / mmHG Vent. Rate : 072 BPM Atrial Rate : 072 BPM P-R Int : 168 ms QRS Dur : 098 ms QT Int : 378 ms P-R-T Axes : 048 -11 026 degrees QTc Int : 413 ms Normal sinus rhythm with sinus arrhythmia Incomplete right bundle branch block Minimal voltage criteria for LVH, may be normal variant ( [place] product ) Inferior infarct , age undetermined Possible Anterior infarct , age undetermined Abnormal ECG When compared with ECG of 26-JAN-2023 12:53, No significant change was found Referred By: Mary Samuel Electronically Signed By:SORAYA PETERSON
[2023-04-28 15:37] LABS: MANUAL DIFF FLAG NO
[2023-04-28 15:51] LABS: Basophils Percent Auto 0.7 % (0-2); Eosinophils Absolute Auto 0.1 X10*3/uL (0.0-0.4); Eosinophils Percent Auto 1.2 % (0-4); Hemoglobin 14.1 g/dl (14.0-18.0); Imm Gran Abs Auto 0.01 X10*3/uL (0.00-0.03); Imm Gran Pct Auto 0.2 % (0.0-0.4); Lymphocytes Absolute Auto 1.3 X10*3/uL (1.2-4.9); Lymphocytes Percent Auto 31.6 % (20-40); Mean Corpuscular HGB Conc 34.4 g/dl (31.0-36.0); Mean Corpuscular Hemoglobin 33.3 pg (27.0-33.0); Mean Corpuscular Volume 96.9 fL (80.0-98.0); Mean Platelet Volume 10.1 fL (9.4-12.4); Monocytes Absolute Auto 0.3 X10*3/uL (0.1-1.2); Monocytes Percent Auto 7.5 % (2-11); Neutrophils Absolute Auto 2.5 x10*3/uL (2.0-8.3); Neutrophils Percent Auto 58.8 % (45-73); Platelet Count 242 X10*3/uL (160-400); Red Blood Count 4.23 X10*6/uL (4.60-5.80); Red Cell Distribution Width 12.1 % (11.0-16.0); White Blood Count 4.2 X10*3/uL (4.8-10.8)
[2023-04-28 15:56] LABS: Alanine Aminotransferase 32 U/L (0-40); Albumin Level 4.6 g/dL (3.5-5.0); Alkaline Phosphatase 46 U/L (39-117); Anion Gap 12 (12-20); Aspartate Amino Transferase 25 U/L (5-37); Bilirubin Total 0.8 mg/dL (0.0-1.0); Blood Urea Nitrogen 12 mg/dL (9-16); Calcium 9.5 mg/dL (8.4-10.2); Carbon Dioxide 25 mmol/L (22-29); Chloride 108 mmol/L (96-108); Creatinine Clr Calc Pharmacy 101.3; Estimated Glomerular Filt Rate > 60; Glucose Random 95 mg/dL (60-115); Potassium 4.3 mmol/L (3.3-5.1); Sodium 141 mmol/L (135-145); Total Protein 6.9 g/dL (6.5-8.0)
[2023-04-28 16:02] VITALS: BP 129/67; PULSE 63; RESP 14; O2SAT 96
[2023-04-28 16:07] LABS: Troponin-I High Sensitivity < 2.7 ng/L (<3.5-35.0)
[2023-04-28 16:20] LABS: INTERNATIONAL NORM RATIO 1.1 (0.9-1.1); Prothrombin Time 13.2 SEC (11.1-13.3)
[2023-04-28] MEDS: iohexoL 350 MG/ML 100 ML INFUS..BTL IV (17:31)
== END 2023-04-28 18:08 | disposition home or self-care (01) ==
PROVIDERS: Registered Nurse Emergency; Emergency Provider Internal Medicine
DX: R07.89 Other chest pain (principal); R06.02 Shortness of breath; I25.10 Atherosclerotic heart disease of native coronary artery without angina pectoris; Z79.899 Other long term (current) drug therapy
CPT/HCPCS: 36415; 71046; 71275; 80053; 84484; 85025; 85610; 93005; 99284; Q9967

== ENCOUNTER 2024-03-13 12:23 | Emergency (ER) | payer OTHER, SELFPAY ==
--- NOTE | ~2024-03-13 | XR_ITS ---
EXAMINATION: XR CHEST CLINICAL INFORMATION: Chest pain. COMPARISON: CTA chest 04/28/2023. Chest radiograph 04/28/2023. TECHNIQUE: Frontal view of the chest was obtained. FINDINGS: No significant abnormality is noted involving the heart, lungs, mediastinum, bony thorax or soft tissues. XR/XR chest 1V IMPRESSION: Unremarkable examination.
[2024-03-13 12:26] VITALS: BP 139/76; PULSE 76; RESP 18; TEMP 36.6; O2SAT 98; BMI 32.3
--- NOTE | 2024-03-13 12:29 | ECG_ITS ---
Test Reason : CP Blood Pressure : / mmHG Vent. Rate : 072 BPM Atrial Rate : 072 BPM P-R Int : 168 ms QRS Dur : 104 ms QT Int : 380 ms P-R-T Axes : 044 -07 048 degrees QTc Int : 416 ms Normal sinus rhythm Minimal voltage criteria for LVH, may be normal variant ( [place] product ) Inferior infarct (cited on or before 28-APR-2023) Abnormal ECG When compared with ECG of 28-APR-2023 15:26, No significant change was found Referred By: Generic ED Physician Electronically Signed By:ALOK RAMIREZ MD
[2024-03-13 12:42] LABS: MANUAL DIFF FLAG NO
[2024-03-13 12:53] VITALS: BP 135/71; PULSE 70
[2024-03-13 12:54] VITALS: BP 134/81; PULSE 70
[2024-03-13 12:55] LABS: Basophils Percent Auto 1.1 % (0-2); Eosinophils Absolute Auto 0.1 X10*3/uL (0.0-0.4); Eosinophils Percent Auto 3.5 % (0-4); Hematocrit 41.3 % (42.0-52.0); Hemoglobin 14.3 g/dl (14.0-18.0); Imm Gran Abs Auto 0.01 X10*3/uL (0.00-0.03); Imm Gran Pct Auto 0.3 % (0.0-0.4); Lymphocytes Absolute Auto 1.5 X10*3/uL (1.2-4.9); Lymphocytes Percent Auto 40.8 % (20-40); Mean Corpuscular HGB Conc 34.6 g/dl (31.0-36.0); Mean Corpuscular Hemoglobin 32.7 pg (27.0-33.0); Mean Corpuscular Volume 94.5 fL (80.0-98.0); Mean Platelet Volume 9.3 fL (9.4-12.4); Monocytes Absolute Auto 0.3 X10*3/uL (0.1-1.2); Monocytes Percent Auto 8.8 % (2-11); Neutrophils Absolute Auto 1.7 x10*3/uL (2.0-8.3); Neutrophils Percent Auto 45.5 % (45-73); Platelet Count 239 X10*3/uL (160-400); Red Blood Count 4.37 X10*6/uL (4.60-5.80); Red Cell Distribution Width 12.1 % (11.0-16.0); White Blood Count 3.8 X10*3/uL (4.8-10.8)
[2024-03-13 12:57] VITALS: BP 124/82; PULSE 75
[2024-03-13 12:58] LABS: Alanine Aminotransferase 28 U/L (0-40); Albumin Level 4.7 g/dL (3.5-5.0); Alkaline Phosphatase 51 U/L (39-117); Anion Gap 15 (12-20); Aspartate Amino Transferase 24 U/L (5-37); Bilirubin Total 0.7 mg/dL (0.0-1.0); Blood Urea Nitrogen 18 mg/dL (9-16); Calcium 9.9 mg/dL (8.4-10.2); Carbon Dioxide 23 mmol/L (22-29); Chloride 105 mmol/L (96-108); Creatinine Clr Calc Pharmacy 111.6; Estimated Glomerular Filt Rate > 60; Glucose Random 96 mg/dL (60-115); Potassium 4.4 mmol/L (3.3-5.1); Sodium 139 mmol/L (135-145)
[2024-03-13 13:02] LABS: B Type Natriuretic Peptide < 10 pg/mL (<100)
--- NOTE | 2024-03-13 13:04 | ED_ITS ---
HPI - Chest Pain General Chief Complaint: Chest Pain Stated Complaint: Mild Chest Discomfort Pins & [place] Extremities Time Seen by Provider: 03/13/24 12:47 Source: patient and family Mode of arrival: ambulatory Limitations: no limitations History of Present Illness ED Provider: DR. Allred HPI narrative: 44-year-old male with history of hypertension, CAD, ascending aortic aneurysm patient has been followed by a mortgage professional for the above issue and patient is compliant with his medications. Came in for evaluation of episodes lightheadedness and feeling dizzy and feeling pins and needles in his 4 extremities sometimes. The 1st episode happened 4 days ago that lasted for few seconds then symptoms improved, seconds episode happened next day while patient was at the gym working out lasted for few seconds then resolved. No weakness, no numbness. Now patient feels no symptoms, no CP. Related Data Previous Rx's ?Medication ?Instructions ?Recorded amoxicillin 875 mg-potassium 1 tab PO Q12H 10 days #20 tabs 03/24/22 clavulanate 125 mg tablet prednisone 20 mg tablet 40 mg (2 x 20 mg) PO DAILY #10 tabs 01/26/23 Allergies Allergy/AdvReac Type Severity Reaction Status Date / Time gluten [GLUTEN] Allergy Unknown DIARRHEA Verified 03/13/24 12:28 lactose Allergy Gastrointestinal Verified 03/13/24 12:28 Upset Review of Systems 2 Review of Systems: All other systems are reviewed and are negative Constitutional: Reports as per HPI and Reports no additional constitutional complaints Eyes: Reports as per HPI and Reports no additional eye complaints Reports system reviewed and no additional complaints, except as documented Cardiovascular: Reports as per HPI and Reports no additional cardiovascular complaints Respiratory: Reports as per HPI and Reports no additional respiratory complaints Gastrointestinal: Reports as per HPI and Reports no additional gastrointestinal complaints Genitourinary: Reports no additional female genitourinary complaints Musculoskeletal: Reports no additional musculoskeletal complaints Skin/Breast: Reports system reviewed and no additional complaints, except as docu Psychiatric: Reports no additional psychiatric complaints Endocrine: Reports no additional endocrine complaints Hematologic/Lymphatic: Reports no additional hematologic/lymphatic complaints Allergic/Immunologic: Reports no additional allergic/immunologic complaints Reports system reviewed and no additional complaints, except as documented and Reports Abnormal speech present [facility] Past Medical History Medical History Hypertension Heart disease Social History Social History Alcohol intake: current Alcohol intake frequency: a few times a month Alcohol type: hard liquor Patient Tobacco Use Status: Never used Tobacco Smoked in Last 30 Days: No Use of substances other than those prescribed or required for medical reasons: No Advance Directives: No Advance Directives Information Provided: No Do you have a plan to hurt others: No Plan Physical Exam 2 Vital Signs: Vital Signs: Last Vital Signs Temp 97.9 F 03/13/24 12:26 Pulse 75 03/13/24 12:57 Resp 18 03/13/24 12:26 BP 124/82 03/13/24 12:57 Pulse Ox 98 03/13/24 12:26 O2 Del Method Room Air 03/13/24 12:26 BMI result Body Mass Index 32.3 Vital signs have been reviewed and appear to be correct. Blood pressure elevated. Heart rate normal. Respiratory rate normal. Temperature normal. Oxygen saturation normal. Appearance: Alert. Oriented X3. No acute distress. Head: Normal external exam. Normocephalic. Atraumatic. No Bae signs noted. No raccoon eyes noted Eyes: PERRLA. EOMI. Conjunctiva and sclera normal. Eyelids normal. ENT: TM's Normal. Pharynx normal. Uvula midline. Moist mucous membranes. No trismus noted. No drooling noted. No muffled voice noted. Neck: Normal inspection. Neck supple. FROM. No adenopathy. Thyroid Normal. No meningeal signs. No neck mass noted. CVS: Normal heart rate and rhythm. Heart sound normal. No murmurs noted. Pulses normal throughout. Respiratory: No respiratory distress. Painless inspiration. Breath sounds normal. No wheezes/rales/rhonchi noted. Chest nontender. No accessory muscle usage noted or decreased air movement noted. Abdomen: Soft and nontender. Bowel sounds normal in all 4 quadrants. No distention noted. No organomegaly noted. No visible injury noted. Back: No CVA tenderness. Full range of motion noted. Skin: Skin warm and dry. Normal skin color. Normal skin turgor. No rashes/lesions/lacerations noted. Extremities: No lower extremity edema. Extremities exhibit normal range of motion. Extremities nontender. Neuro: Oriented X 3. Cranial nerve exam: II-XII are grossly intact No motor deficit. No sensory deficit. Reflexes normal. Course Reevaluation(s) Reevaluation #1: 44-year-old male with history of hypertension, coronary artery disease presented with 2 episodes of feeling lightheadedness the last week, no chest pain today or shortness of breath, no risk for pulmonary embolism with a negative D-dimer. Patient currently has no symptoms able to ambulate with no chest pain or shortness of breath, will discharge the patient and follow-up with PCP. Time: 15:37 Medical Decision Making Differential Diagnosis Differential Diagnoses: The differential diagnosis associated with the presentation includes ( ACS, pulmonary embolism, pleural effusion, pneumonia, electrolyte derangement, severe anemia.) Admission/Observation Consideration of admission/observation: Escalation of care including admission/observation considered Lab Data MDM Lab Attestation statement: I reviewed the patient's lab results. 03/13/24 12:37 03/13/24 12:37 Labs: Lab Results 03/13/24 03/13/24 Range/Units 12:37 13:04 WBC 3.8 L (4.8-10.8) X10*3/uL RBC 4.37 L (4.60-5.80) X10*6/uL Hgb 14.3 (14.0-18.0) g/dl Hct 41.3 L (42.0-52.0) % MCV 94.5 (80.0-98.0) fL MCH 32.7 (27.0-33.0) pg MCHC 34.6 (31.0-36.0) g/dl RDW 12.1 (11.0-16.0) % Plt Count 239 (160-400) X10*3/uL MPV 9.3 L (9.4-12.4) fL Immature Gran % (Auto) 0.3 (0.0-0.4) % Neut % (Auto) 45.5 (45-73) % Lymph % (Auto) 40.8 H (20-40) % [place] % (Auto) 8.8 (2-11) % Eos % (Auto) 3.5 (0-4) % Baso % (Auto) 1.1 (0-2) % Lymph # (Auto) 1.5 (1.2-4.9) X10*3/uL [place] # (Auto) 0.3 (0.1-1.2) X10*3/uL Eos # (Auto) 0.1 (0.0-0.4) X10*3/uL Baso # (Auto) 0.0 (0.0-0.2) X10*3/uL Abs Immat Gran (auto) 0.01 (0.00-0.03) X10*3/uL Absolute Neuts (auto) 1.7 L (2.0-8.3) x10*3/uL Absolute Nucleated RBC 0.000 (0.0-0.012) X10*3/uL Nucleated RBC % (auto) 0.0 (0.0-0.2) /100WBC PT 12.0 (11.1-13.3) SEC INR 1.0 (0.9-1.1) APTT 33.4 (26.0-36.8) SEC D-Dimer High Sensitivty < 150 NG/ML Sodium 139 (135-145) mmol/L Potassium 4.4 (3.3-5.1) mmol/L Chloride 105 (96-108) mmol/L Carbon Dioxide 23 (22-29) mmol/L Anion Gap 15 (12-20) BUN 18 H (9-16) mg/dL Creatinine 0.98 (0.5-1.4) mg/dL Estim Creat Clear Calc 111.6 Estimated GFR > 60 Random Glucose 96 (60-115) mg/dL Calcium 9.9 (8.4-10.2) mg/dL Total Bilirubin 0.7 (0.0-1.0) mg/dL AST 24 (5-37) U/L ALT 28 (0-40) U/L Alkaline Phosphatase 51 (39-117) U/L Troponin I High Sens < 2.7 (<3.5-35.0) ng/L B-Natriuretic Peptide < 10 (<100) pg/mL Total Protein 7.0 (6.5-8.0) g/dL Albumin 4.7 (3.5-5.0) g/dL Independent Interpretation I performed an independent interpretation of an: Plain X-Ray ( chest: Unremarkable examination.) Radiology Impression Discussion of test interpretation with radiology: I have reviewed the radiologist's reading. Discharge Plan Discharge Clinical Impression: Atypical chest pain Patient Disposition: Home, Self-Care Instructions: Chest Pain (ED) Prescriptions: No Action amoxicillin-pot clavulanate 875-125 mg tablet 1 tab PO Q12H 10 Days Qty: 20 0RF prednisone 20 mg tablet 40 mg PO DAILY Qty: 10 0RF Referrals: Sammie Rivera MD [Primary Care Provider] - Print Language: Citizen [place]
[2024-03-13 13:05] LABS: Troponin-I High Sensitivity < 2.7 ng/L (<3.5-35.0)
--- NOTE | 2024-03-13 13:07 | PC.NURSE ---
a&ox4. vss and up to date. nsr on the quality assurance monitor. pt presents to the ED from triage s/p sternal chest pain/weakness/numbness/tingling in upper/lower extremities bilaterally. pt verbalizes sx started on friday which then subsided on their own. pt then went to the gym on to do his normal routine when sx appeared again. pt also verbalizes feeling dizzy/lightheaded/diaphoretic when sx started. pt also states blurry/change in vision. orthostatic vs performed by tech. 18gIV placed in the right AC/forearm - labs obtained/sent to lab. pt seen by ED provider/aware of plan of care moving forward. chest xray results pending. no sob/wob noted. respirations even/unlabored. lung sounds CTA. plan of care ongoing. call edmondson placed within reach.
[2024-03-13 13:17] LABS: Partial Thromboplastin Time 33.4 SEC (26.0-36.8)
[2024-03-13 13:40] LABS: D Dimer High Sensitivity < 150 NG/ML
[2024-03-13 16:16] VITALS: BP 127/77; PULSE 60; RESP 16; TEMP 36.6; O2SAT 98
== END 2024-03-13 16:17 | disposition home or self-care (01) ==
PROVIDERS: Emergency Provider Emergency Medicine; PCP Internal Medicine
DX: R07.89 Other chest pain (principal); R42 Dizziness and giddiness; I10 Essential (primary) hypertension; R20.2 Paresthesia of skin
CPT/HCPCS: 36415; 71045; 80053; 83880; 84484; 85025; 85379; 85610; 85730; 93005; 99283; 99285

== ENCOUNTER → 2024-03-13 12:29 | Outpatient (BNV) | payer OTHER, SELFPAY | PROVIDERS: Emergency Provider Emergency Medicine; PCP Internal Medicine; Visit Provider Internal Medicine Cardiovascular Disease | DX: R94.31 Abnormal electrocardiogram [ECG] [EKG] (principal) | CPT/HCPCS: 93010 ==

== ENCOUNTER 2024-04-06 14:41 | Emergency (ER) | payer OTHER, SELFPAY ==
[2024-04-06 15:00] VITALS: BP 131/82; PULSE 80; RESP 17; TEMP 36.6; O2SAT 98; BMI 31.0
--- NOTE | 2024-04-06 15:01 | ED_ITS ---
HPI - Wound/Laceration General Chief Complaint: Wound/Laceration Stated Complaint: arm lac Time Seen by Provider: 04/06/24 17:33 Source: patient Mode of arrival: ambulatory Limitations: no limitations History of Present Illness ED Provider: Clive Moreno PA-C HPI narrative: 44-year-old male presents to the ER for evaluation of a laceration to his right forearm sustained about 30 minutes ago. 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 Patient reports that the blood was ?squirting? out of his arm. Does not think there is any glass or FB in the wound as he was able to remove it quickly. He took a towel and tied it onto the wound and came to the ER for further evaluation. Tdap is unknown. In triage wound was evaluated, approximately 1 cm long with active oozing, pressure dressing applied. Onset (ago): minute(s) (30) Extremity Location: right: forearm Place: work Patient tetanus UTD: No Context: accidental Associated symptoms: other (bleeding) Treatments prior to arrival: bandage Related Data Previous Rx's ?Medication ?Instructions ?Recorded amoxicillin 875 mg-potassium 1 tab PO Q12H 10 days #20 tabs 03/24/22 clavulanate 125 mg tablet prednisone 20 mg tablet 40 mg (2 x 20 mg) PO DAILY #10 tabs 01/26/23 amoxicillin 875 mg-potassium 1 tab PO BID #6 tabs 04/06/24 clavulanate 125 mg tablet Allergies Allergy/AdvReac Type Severity Reaction Status Date / Time gluten [GLUTEN] Allergy Unknown DIARRHEA Verified 04/06/24 15:02 lactose Allergy Gastrointestinal Verified 04/06/24 15:02 Upset Review of Systems Review of Systems: Yes all other systems are reviewed and are negative PMFSH Past Medical History Medical History Hypertension Heart disease Social History Social History Alcohol intake: current Alcohol intake frequency: a few times a month Alcohol type: hard liquor Patient Tobacco Use Status: Never used Tobacco Advance Directives: Yes Advance Directives Information Provided: No Advance Directives on File: No Physical Exam Vital Signs: Vital Signs: Last Vital Signs Temp 98 F 04/06/24 18:31 Pulse 73 04/06/24 18:31 Resp 19 04/06/24 18:31 BP 128/76 04/06/24 18:31 Pulse Ox 99 04/06/24 18:31 O2 Del Method Room Air 04/06/24 18:31 BMI result Body Mass Index 31.0 Appearance: Alert. Oriented X3. No acute distress. HEENT: normal inspection CVS: Normal heart rate and rhythm. Pulses normal. Respiratory: No respiratory distress. Skin: Skin warm and dry. Normal skin color. Normal skin turgor. No rashes. Extremities: dorsal right forearm with a 1cm linear laceration in the middle of the arm with active oozing, no palpable crepitus or FB. NV intact distally with good radial pulse and hand grasp. Neuro: Oriented X 3. nonfocal Medications Administered Discontinued Medications Generic Name Dose Route Start Last Admin Trade Name Freq PRN Reason Stop Dose Admin Diphtheria/Tetanus/Acell Pertussis 0.5 ml 04/06/24 17:33 04/06/24 17:52 Diphth,Pertus(Acell),Tet Adult 0.5 Ml Syringe IM 04/06/24 17:34 0.5 ml .ONCE ONE Administration Lidocaine HCl 2 ml 04/06/24 17:33 04/06/24 17:55 Lidocaine Hcl 2% 2 Ml Vial INFILTRATI 04/06/24 17:34 Not Given ONCE ONE Medical Decision Making Medical Decision Making MDM Narrative: 44-year-old male presents the ER for evaluation of a bleeding laceration on his right forearm after a piece of broken glass punctured his arm, he is concerned for injury to the vein and active bleeding. He applied a pressure dressing and came to the ER. On arrival to the ER bleeding is much better controlled although slightly oozing still. No palpable foreign body. Low suspicion for vascular injury that is significant. Compartments are soft and compressible and he is neurovascularly intact distally. wound sutured closed w/ 2 sutures given active oozing despite pressure dressing. wound care d/w patient. tdap given. stable for d/c home. abx given for ppx. stable for d/c home. Differential Diagnosis Differential Diagnoses: The differential diagnosis associated with the presentation includes deep laceration, venous laceration, arterial laceration, superficial laceration External Record Review External record reviewed: Prior outpatient labs Tests considered The following testing was considered but not selected: XR forearm considered, low suspicion for FB or bony involvement Prescription Management I considered prescription management with: Pain Medication and Antibiotic Procedures Laceration Laceration 1: Site: upper extremity Side (If applicable): right Size (cm): 1 Description: linear Depth: simple, single layer Local Anesthetic: lidocaine 1% Amount of anesthesia used (mL): 1 Pre-repair: wound explored, irrigated extensively and deep structures intact Skin layer closed with: nylon Size (cm): 3-0 Number of sutures: 2 Technique: simple, interrupted Critical Care Time Critical Care Time Critical Care Time: No Discharge Plan Discharge Clinical Impression: Laceration Patient Disposition: Home, Self-Care Instructions: Laceration (DC) Additional Instructions: 2 stitches were used to close your wound today You will need your stitches out in 7 days. See you doctor for this or come back to the ER and we will remove them. Do not get wet for 24 hours, after that you can briefly wash with soap and water then pat dry. Keep wound clean and covered. Do not submerge in water, no swimming. Take the prescribed antibiotics as directed, complete the entire course and do not miss any doses If you develop signs of infection including increased pain, swelling, redness or drainage of pus come back to the ER for further evaluation. Prescriptions: New amoxicillin-pot clavulanate 875-125 mg tablet 1 tab PO BID Qty: 6 0RF No Action amoxicillin-pot clavulanate 875-125 mg tablet 1 tab PO Q12H 10 Days Qty: 20 0RF prednisone 20 mg tablet 40 mg PO DAILY Qty: 10 0RF Referrals: Sammie Rivera MD [Primary Care Provider] - Interventions: ED Discharge Assessment Last Done: 04/06/24 18:31 Discharge Date/Time: 04/06/24 18:31 Print Language: [place]
[2024-04-06] MEDS: Diphth,Pertus(ACell),Tet Adult 0.5 ML SYRINGE IM (17:52)
[2024-04-06 18:18] VITALS: BP 128/76; PULSE 73; RESP 19; TEMP 36.6; O2SAT 99
[2024-04-06 18:31] VITALS: BP 128/76; PULSE 73; RESP 19; TEMP 36.6; O2SAT 99
== END 2024-04-06 18:31 | disposition home or self-care (01) ==
PROVIDERS: Emergency Provider Emergency Medicine; PCP Internal Medicine
DX: S51.811A Laceration without foreign body of right forearm, initial encounter (principal); W25.XXXA Contact with sharp glass, initial encounter; Y93.9 Activity, unspecified; Y92.009 Unspecified place in unspecified non-institutional (private) residence as the place of occurrence of the external cause; Y99.9 Unspecified external cause status; Z23 Encounter for immunization
CPT/HCPCS: 12001; 90471; 90715; 99282; 99284

== ENCOUNTER 2024-04-15 20:30 | Emergency (ER) | payer OTHER, SELFPAY ==
[2024-04-15 20:38] VITALS: BP 139/88; PULSE 71; RESP 16; TEMP 36.9; O2SAT 97; BMI 32.0
--- NOTE | 2024-04-15 20:38 | ED.SKABFB ---
HPI - Skin/Abscess/Foreign Bdy General Stated complaint: suture removal Time Seen by Provider: 04/15/24 20:38 Source: patient Mode of arrival: ambulatory Limitations: no limitations History of Present Illness ED Provider: MELCHOR GRACIA PA-C HPI narrative: 44-year-old male with no significant past medical history presents to the ED today requesting suture removal. He was [place] [facility] [place] after sustaining laceration to right dorsal forearm. He had 2 sutures placed at that time and was advised to come back to the ED for removal in 7 days. Reports completing the entire course of augmentin as prescribed. No concerns at this time. Related Data Previous Rx's ?Medication ?Instructions ?Recorded amoxicillin 875 mg-potassium 1 tab PO Q12H 10 days #20 tabs 03/24/22 clavulanate 125 mg tablet prednisone 20 mg tablet 40 mg (2 x 20 mg) PO DAILY #10 tabs 01/26/23 amoxicillin 875 mg-potassium 1 tab PO BID #6 tabs 04/06/24 clavulanate 125 mg tablet Allergies Allergy/AdvReac Type Severity Reaction Status Date / Time gluten [GLUTEN] Allergy Unknown DIARRHEA Verified 04/15/24 20:40 lactose Allergy Gastrointestinal Verified 04/15/24 20:40 Upset Review of Systems Review of Systems: Constitutional: No fever, chills, fatigue, night sweats, weight changes ENT/Mouth: No ear pain, hearing loss, nasal congestion, sinus pain, rhinorrhea, sore throat Eyes: No eye pain, swelling, redness, vision changes, discharge Cardio: No chest pain, palpitations, STEIN, orthopnea, peripheral edema Pulm: No SOB, cough, sputum, wheezing, dyspnea, hemoptysis GI: No nausea, vomiting, hematemesis, abdominal pain, diarrhea, constipation, hematochezia, melena : No irregular bleeding, dysuria, frequency, urgency, hesitancy, hematuria, flank pain, urinary flow changes, urinary incontinence or retention MSK: No back pain, neck pain, joint pain, myalgias Skin: No lesions, rashes Neuro: No weakness, numbness, paresthesias, LOC, dizziness, headache Psych: No anxiety/panic, depression, SI/HI, AH/VH All other systems reviewed and are negative. [facility] Past Medical History Attestation statement: The following information was validated with the patient. Source: old records reviewed and nursing notes reviewed Medical History Hypertension Heart disease Social History Social History Alcohol intake: current Alcohol intake frequency: a few times a month Alcohol type: hard liquor Patient Tobacco Use Status: Never used Tobacco Physical Exam Vital Signs: Vital Signs: Vital signs stable, afebrile General: Well appearing, in no acute distress. Skin: Warm, dry, intact. No rashes or lesions. Head: Normocephalic, atraumatic. EENT: Hearing is intact b/l. Conjunctiva clear. Sclera is anicteric. PERRLA. EOM intact. Moist mucous membranes.? Cardiac: Chest wall symmetric. RRR. No MRG. No JVD. Lungs: Normal respiratory effort without accessory muscle use. CTA bilaterally. No rales, rhonchi, or wheezes.? Ext: There is well-healing lack noted to right dorsal forearm with [address] No surrounding erythema. No dehiscence.. Neuro: AOx3. Normal speech. Sensation intact to light touch. NV intact distally. Medical Decision Making Medical Decision Making MDM Narrative: 44-year-old male with no significant past medical history presents to the ED today requesting suture removal. Vital signs stable, afebrile. On exam, there is a well-healing laceration noted to right dorsal forearm with [address] No surrounding erythema. No dehiscence. No noted discharge or bleeding. Both sutures removed without complication. Patient tolerated procedure well. No bleeding. Differential Diagnosis Differential Diagnoses: The differential diagnosis associated with the presentation includes As above Admission/Observation Not indicated External Record Review External record reviewed: Inpatient record Social Determinants Patient?s care significantly limited by Social Determinants of Health including: Other Social Determinant of Health Critical Care Time Critical Care Time Critical Care Time: No Discharge Plan Discharge Clinical Impression: Encounter for removal of sutures Patient Disposition: Home, Self-Care Instructions: Stitches Removal (ED) Additional Instructions: You have been evaluated in the Emergency Department today for suture removal.? Your sutures were removed and your wound is healing well.? You can wash the area freely now. Keep your wound out of the sunlight for six months to reduce the appearance of scarring. You should cover your scar or use high SPF sunscreen protection. Please follow up with your primary care provider at your next scheduled appointment. Return to the ER immediately signs of infection to your wounds such as worsening pain, worsening redness/swelling, discharge/pus from your wounds, or for any other concerning symptoms. Prescriptions: No Action amoxicillin-pot clavulanate 875-125 mg tablet 1 tab PO Q12H 10 Days Qty: 20 0RF prednisone 20 mg tablet 40 mg PO DAILY Qty: 10 0RF amoxicillin-pot clavulanate 875-125 mg tablet 1 tab PO BID Qty: 6 0RF Print Language: [place]ian
[2024-04-15 21:15] VITALS: BP 139/88; PULSE 71; RESP 16; TEMP 36.9; O2SAT 97
== END 2024-04-15 20:46 | disposition home or self-care (01) ==
PROVIDERS: Emergency Provider Emergency Medicine; PCP Internal Medicine
DX: Z48.02 Encounter for removal of sutures (principal); S51.811D Laceration without foreign body of right forearm, subsequent encounter; X58.XXXD Exposure to other specified factors, subsequent encounter
CPT/HCPCS: 99282

== ENCOUNTER 2024-11-10 14:02 | Emergency (ER) | payer OTHER, SELFPAY ==
--- NOTE | ~2024-11-10 | XR_ITS ---
EXAMINATION: XR CHEST CLINICAL INFORMATION: pain COMPARISON: March 13, 2024. TECHNIQUE: Frontal view of the chest was obtained. FINDINGS: No consolidation, pleural effusion or pneumothorax. No hyperinflation. Cardiomediastinal silhouette size is normal. Osseous structures are intact with a mild levoconvex curvature of the mid to lower thoracic spine. XR/XR chest 1V IMPRESSION: No acute airspace disease. Electronically signed by: Wilmer Whelan MD 11/10/2024 02:53 PM EDT
[2024-11-10 14:11] VITALS: BP 139/76; PULSE 80; RESP 18; TEMP 36.4; O2SAT 97
--- NOTE | 2024-11-10 14:20 | ECG_ITS ---
Test Reason : PAIN Blood Pressure : */* mmHG Vent. Rate : 67 BPM Atrial Rate : 67 BPM P-R Int : 170 ms QRS Dur : 102 ms QT Int : 390 ms P-R-T Axes : 49 10 47 degrees QTcB Int : 412 ms Normal sinus rhythm Minimal voltage criteria for LVH, may be normal variant ( Sokolow-Stanley ) Borderline ECG When compared to the previous EKG of No significant changes seen Referred By: Stephanie Moreland Electronically Signed By: Nate Benitez
--- NOTE | 2024-11-10 14:21 | ED_ITS ---
HPI - General Adult General Chief complaint: Dizziness Stated complaint: Blurry Vison, Shortness of Breath, Back Pain Time Seen by Provider: 11/10/24 17:39 History of Present Illness ED Provider: Ronald MILLS narrative: The patient is a 44-year-old male who apparently at the age of 25 had some kind of a myocardial infarction. He says that he had a cardiac catheterization but there was no indication for a stent. It is possible he may have had a coronary artery dissection. He follows with the heel sorter Dr. Callaway in [place]. The patient is otherwise extremely healthy and athletic 44-year-old. He goes to the gym a lot. He does not smoke and does not use any illicit substances. 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 The patient says that 1 week ago he was at the gym. He was starting to warm up on a treadmill walking with a treadmill angled so he was walking up an incline. He says he was not straining himself very hard when he started to feel lightheaded. He tried to continue his work out but did not feel well enough to continue. The next day he developed a headache. He has noticed that he is more sensitive to light at night during the last several days. He has also had some degree of shortness of breath. He tried to go to the gym several days later but still did not feel that he will had the energy to do a full work out. He has also had some discomfort in the right side of his chest and his right shoulder. He does not think that he injured himself or strained himself in any unusual way. The patient has had no fever, sweats, chills. No cough or sputum. No difficulty speaking. No lateralizing weakness. No difficulty walking. Related Data Previous Rx's ?Medication ?Instructions ?Recorded amoxicillin 875 mg-potassium 1 tab PO Q12H 10 days #20 tabs 03/24/22 clavulanate 125 mg tablet prednisone 20 mg tablet 40 mg (2 x 20 mg) PO DAILY #10 tabs 01/26/23 amoxicillin 875 mg-potassium 1 tab PO BID #6 tabs 04/06/24 clavulanate 125 mg tablet Allergies Allergy/AdvReac Type Severity Reaction Status Date / Time gluten [GLUTEN] Allergy Unknown DIARRHEA Verified 11/10/24 14:14 lactose Allergy Gastrointestinal Verified 11/10/24 14:14 Upset Review of Systems 2 Review of Systems: Yes all other systems are reviewed and are negative [facility] Past Medical History Medical History Hypertension Heart disease Social History Social History Alcohol intake: current Alcohol intake frequency: a few times a month Alcohol type: hard liquor Patient Tobacco Use Status: Never used Tobacco Smoked in Last 30 Days: No Use of substances other than those prescribed or required for medical reasons: No Advance Directives: No Advance Directives Information Provided: No Physical Exam ED Vital Signs: Vital Signs - 24 hr 11/10/24 14:11 11/10/24 18:13 11/10/24 19:46 Temperature 97.5 F 0 F L Pulse Rate 80 66 66 Respiratory Rate 18 19 19 Blood Pressure 139/76 112/77 112/77 Pulse Oximetry 97 98 98 Oxygen Delivery Method Room Air Room Air Room Air BMI result Body Mass Index 30.0 Const Other: The patient is a very muscular and athletic looking 44-year-old. He does not appear in any obvious distress or seem acutely ill in any way. HENMT Other: Face is symmetrical. The face appears normal. The posterior pharynx and oral cavity are normal. Eyes Other: Pupils are round equal and reactive to light, extraocular movements are intact, conjunctivae are clear, visual sapp are intact to confrontation. Neck Neck: Yes normal visual inspection, Yes full ROM, Yes no lymphadenopathy and Yes no JVD Resp Effort & Inspection: normal respiratory effort Auscultation: clear to auscultation bilaterally Cardio Rate: regular rate Rhythm: regular rhythm Heart sounds: S1 normal heart sound present and S2 normal heart sound present Skin Other: The skin is dry and unremarkable. No rash or lesions. Neuro Other: The patient is awake and alert with a normal mental status. Cognition is entirely normal. Pupils are round equal and reactive to light, extraocular movements are intact, visual sapp are intact to confrontation, face is symmetrical, speech is normal, he has normal strength in all 4 extremities. There is no pronator drift. Finger-nose is normal. Heel-miller is normal. His gait is normal. He is neurologically intact. Extrem Other: No peripheral edema. No calf swelling or tenderness. The patient has some tenderness around the muscles of the right scapula. Course Course Course Narrative: This is a rapid medical exam performed by Stephanie Moreland PA-C. The patient is a 44-year-old male with atypical history for coronary artery disease, having had an LA at the age of 20, who presents with multiple complaints. 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 In addition patient has been experiencing blurred vision with dizziness. On exam his strength is equal 5/5 bilateral upper extremities with resistance, his blurred vision is subjective, he has full range of motion of the neck. Still concern for VAD. We will screen basic labs, troponin, EKG and chest x-ray at this time. The patient was stable and can return to the waiting room pending his full medical assessment. Medications Administered Discontinued Medications Generic Name Dose Route Start Last Admin Trade Name Freq PRN Reason Stop Dose Admin Ibuprofen 600 mg 11/10/24 18:25 11/10/24 18:28 Ibuprofen 600 Mg Tablet PO 11/10/24 18:26 600 mg ONCE ONE Administration Medical Decision Making Medical Decision Making MDM Narrative: The patient is a 44-year-old male who has had a variety of symptoms for about a week. Symptoms include a sense of easy fatigability, dizziness, lightheadedness, headaches, photophobia, and chest pain and right shoulder pain. The patient looks as though he is ordinarily in excellent health and is very athletic. He apparently has a history of a coronary event at the age of 25 which may have been a coronary artery dissection. He apparently had a cardiac catheterization but there was no stenting. Does not sound as though he has a significant family history of early coronary disease. The patient's workup today includes an unremarkable EKG and labs that are largely unremarkable. His white count is 3.5 which is similar to his previous white counts. Hemoglobin is 14.6. Platelet count 209. Differential is normal. He has negative troponins. He has an undetectable CRP. He has a ESR of 2. He has an undetectable D-dimer. Has a an undetectable BNP. Given his completely normal neurological exam and is extremely reassuring labs, EKG, chest x-ray, and vital signs I do not see an indication for additional testing today. The patient will be reassured and should follow up with his PCP and his heel sorter for a 2nd opinion. He should return if worse. Lab Data 11/10/24 14:45 11/10/24 14:45 Labs: Lab Results 11/10/24 11/10/24 Range/Units 14:45 18:14 WBC 3.5 L (4.8-10.8) X10*3/uL RBC 4.39 L (4.60-5.80) X10*6/uL Hgb 14.6 (14.0-18.0) g/dl Hct 41.8 L (42.0-52.0) % MCV 95.2 (80.0-98.0) fL MCH 33.3 H (27.0-33.0) pg MCHC 34.9 (31.0-36.0) g/dl RDW 12.2 (11.0-16.0) % Plt Count 209 (160-400) X10*3/uL MPV 9.3 L (9.4-12.4) fL Immature Gran % (Auto) 0.3 (0.0-0.4) % Neut % (Auto) 49.9 (45-73) % Lymph % (Auto) 38.6 (20-40) % [place] % (Auto) 8.0 (2-11) % Eos % (Auto) 2.3 (0-4) % Baso % (Auto) 0.9 (0-2) % Lymph # (Auto) 1.4 (1.2-4.9) X10*3/uL [place] # (Auto) 0.3 (0.1-1.2) X10*3/uL Eos # (Auto) 0.1 (0.0-0.4) X10*3/uL Baso # (Auto) 0.0 (0.0-0.2) X10*3/uL Abs Immat Gran (auto) 0.01 (0.00-0.03) X10*3/uL Absolute Neuts (auto) 1.8 L (2.0-8.3) x10*3/uL Absolute Nucleated RBC 0.000 (0.0-0.012) X10*3/uL Nucleated RBC % (auto) 0.0 (0.0-0.2) /100WBC ESR 2 (0-15) MM/HR D-Dimer High Sensitivty < 150 NG/ML Sodium 140 (135-145) mmol/L Potassium 4.3 (3.3-5.1) mmol/L Chloride 104 (96-108) mmol/L Carbon Dioxide 30 H (22-29) mmol/L Anion Gap 10 L (12-20) BUN 18 H (9-16) mg/dL Creatinine 0.83 (0.5-1.4) mg/dL Estim Creat Clear Calc 127.3 Estimated GFR > 60 Random Glucose 91 (60-115) mg/dL Calcium 9.8 (8.4-10.2) mg/dL Magnesium 2.0 (1.6-2.6) mg/dL Total Bilirubin 0.6 (0.0-1.0) mg/dL AST 28 (5-37) U/L ALT 48 H (0-40) U/L Alkaline Phosphatase 58 (39-117) U/L Troponin I High Sens < 2.7 < 2.7 (<3.5-35.0) ng/L C-Reactive Protein < 0.10 (< or = 0.50) mg/dL B-Natriuretic Peptide < 10 (<100) pg/mL Total Protein 7.5 (6.5-8.0) g/dL Albumin 4.6 (3.5-5.0) g/dL Discharge Plan Discharge Clinical Impression: Chest pain, Headache Patient Disposition: Home, Self-Care Additional Instructions: Your testing in the emergency room today seems very reassuring. Please plan on contacting your regular doctor's office tomorrow morning to try to make a follow up appointment for a second opinion. If you feel significantly worse please return to the emergency room for additional evaluation. Prescriptions: No Action amoxicillin-pot clavulanate 875-125 mg tablet 1 tab PO Q12H 10 Days Qty: 20 0RF prednisone 20 mg tablet 40 mg PO DAILY Qty: 10 0RF amoxicillin-pot clavulanate 875-125 mg tablet 1 tab PO BID Qty: 6 0RF Referrals: Zoe Callaway MD [Physician] - Sammie Rivera MD [Primary Care Provider] - (chest pain, headache, unremarkable ED work-up) Interventions: ED Discharge Assessment Last Done: 11/10/24 19:46 Discharge Date/Time: 11/10/24 19:46 Print Language: Malagasy
[2024-11-10 14:51] LABS: MANUAL DIFF FLAG NO
[2024-11-10 14:52] LABS: Basophils Percent Auto 0.9 % (0-2); Eosinophils Absolute Auto 0.1 X10*3/uL (0.0-0.4); Eosinophils Percent Auto 2.3 % (0-4); Hematocrit 41.8 % (42.0-52.0); Hemoglobin 14.6 g/dl (14.0-18.0); Imm Gran Abs Auto 0.01 X10*3/uL (0.00-0.03); Imm Gran Pct Auto 0.3 % (0.0-0.4); Lymphocytes Absolute Auto 1.4 X10*3/uL (1.2-4.9); Lymphocytes Percent Auto 38.6 % (20-40); Mean Corpuscular HGB Conc 34.9 g/dl (31.0-36.0); Mean Corpuscular Hemoglobin 33.3 pg (27.0-33.0); Mean Corpuscular Volume 95.2 fL (80.0-98.0); Mean Platelet Volume 9.3 fL (9.4-12.4); Monocytes Absolute Auto 0.3 X10*3/uL (0.1-1.2); Neutrophils Absolute Auto 1.8 x10*3/uL (2.0-8.3); Neutrophils Percent Auto 49.9 % (45-73); Platelet Count 209 X10*3/uL (160-400); Red Blood Count 4.39 X10*6/uL (4.60-5.80); Red Cell Distribution Width 12.2 % (11.0-16.0); White Blood Count 3.5 X10*3/uL (4.8-10.8)
[2024-11-10 15:13] LABS: Alanine Aminotransferase 48 U/L (0-40); Albumin Level 4.6 g/dL (3.5-5.0); Anion Gap 10 (12-20); Aspartate Amino Transferase 28 U/L (5-37); Bilirubin Total 0.6 mg/dL (0.0-1.0); Blood Urea Nitrogen 18 mg/dL (9-16); Calcium 9.8 mg/dL (8.4-10.2); Carbon Dioxide 30 mmol/L (22-29); Chloride 104 mmol/L (96-108); Creatinine Clr Calc Pharmacy 127.3; Estimated Glomerular Filt Rate > 60; Glucose Random 91 mg/dL (60-115); Potassium 4.3 mmol/L (3.3-5.1); Sodium 140 mmol/L (135-145); Total Protein 7.5 g/dL (6.5-8.0)
[2024-11-10 15:19] LABS: Troponin-I High Sensitivity < 2.7 ng/L (<3.5-35.0)
[2024-11-10 15:56] LABS: Alkaline Phosphatase 58 U/L (39-117)
[2024-11-10 18:13] VITALS: BP 112/77; PULSE 66; RESP 19; O2SAT 98
[2024-11-10 18:21] LABS: C Reactive Protein < 0.10 mg/dL (< or = 0.50)
[2024-11-10] MEDS: Ibuprofen 600 MG TABLET PO (18:28)
[2024-11-10 18:33] LABS: B Type Natriuretic Peptide < 10 pg/mL (<100)
[2024-11-10 18:44] LABS: Troponin-I High Sensitivity < 2.7 ng/L (<3.5-35.0)
[2024-11-10 18:49] LABS: Erythrocyte Sedimentation Rate 2 MM/HR (0-15)
[2024-11-10 19:05] LABS: D Dimer High Sensitivity < 150 NG/ML
[2024-11-10 19:46] VITALS: BP 112/77; PULSE 66; RESP 19; TEMP -17.7; TEMP 0; O2SAT 98
== END 2024-11-10 19:46 | disposition home or self-care (01) ==
PROVIDERS: Physician Assistant Medical; Emergency Provider Emergency Medicine; PCP Internal Medicine
DX: R42 Dizziness and giddiness (principal); R06.02 Shortness of breath; M54.50 Low back pain, unspecified; H53.8 Other visual disturbances; R07.89 Other chest pain; R51.9 Headache, unspecified; Z79.899 Other long term (current) drug therapy
CPT/HCPCS: 36415; 71045; 80053; 83735; 83880; 84484; 85025; 85379; 85652; 86140; 93005; 99283; 99285

== ENCOUNTER → 2024-11-10 14:20 | Outpatient (BNV) | payer OTHER, SELFPAY | PROVIDERS: Emergency Provider Emergency Medicine; PCP Internal Medicine; Visit Provider Internal Medicine Cardiovascular Disease | DX: R07.9 Chest pain, unspecified (principal) | CPT/HCPCS: 93010 ==

== ENCOUNTER → 2024-11-10 14:20 | Outpatient (BNV) | payer OTHER, SELFPAY | PROVIDERS: PCP Internal Medicine; Visit Provider Radiology Diagnostic Radiology | DX: R07.9 Chest pain, unspecified (principal) | CPT/HCPCS: 71045 ==

== ENCOUNTER 2025-01-20 15:44 | Emergency (ER) | payer OTHER, SELFPAY ==
[2025-01-20] VITALS (7 sets, daily range): BP systolic 111–126; BP diastolic 69–80; PULSE 54–97; RESP 16; TEMP 36.3–37.1; O2SAT 98–99; BMI 31.2
--- NOTE | ~2025-01-20 | CT_ITS ---
CLINICAL HISTORY: right eye twitching, blurred vision, ALEJANDRA CT Head without contrast. CT angiography head and neck with contrast. 3D Postprocessing. Comparison: None Findings: HEAD CT: No intra-axial mass, midline shift, hydrocephalus, or acute hemorrhage. No significant atrophy-like change or white matter disease. There is no sinus or mastoid fluid. The orbits are unremarkable. There is no acute fracture. HEAD AND NECK CTA: Aortic arch and cervical great vessels are patent. Intracranial arteries are patent. No aneurysm, dissection, or occlusion. No abnormal intracranial enhancement. The visualized thyroid gland is unremarkable. No cervical mass or fluid collection. Lung apices clear. No acute fracture. IMPRESSION: 1. Unremarkable head CT. 2. Patent head and neck CTA. This document has been electronically signed by: Jaiden Montoya MD on 01/20/2025 20:10:54
--- NOTE | ~2025-01-20 | XR_ITS ---
CLINICAL HISTORY: CP Chest Radiographs, 2 views Comparison: CR/RI/SR - XR CHEST 1V - 11/10/24 14:30 EDT CR/RI/SR - XR CHEST 1V - 03/13/24 12:[address]/SR - CT ANGIO CHEST AORTA - 04/28/23 17:10 EDT Findings: No cardiomegaly. Normal mediastinal contours. No pneumothorax. No opacity. No pleural effusion. Normal upper abdomen. No acute fracture. Impression: No acute findings. This document has been electronically signed by: Fany Frank MD on 01/20/2025 17:10:58
--- NOTE | 2025-01-20 16:19 | ED_ITS ---
HPI - General Adult General Chief complaint: Dizziness Stated complaint: Lightheaded, headache, blurred vision Time Seen by Provider: 01/20/25 17:02 Source: patient Mode of arrival: ambulatory Limitations: no limitations History of Present Illness ED Provider: MELCHOR GRACIA PA-C HPI narrative: 44 year old male with pmhx significant for HTN, aortic root dilation, and myocardial infarction in his 20s who presents for episodic chest pain and lightheadedness since last Friday. He describes the pain as a feeling of heaviness that is 7/10 severity. When this pain occurs, he feels like he is going to lose consciousness. At first it was occasional, but now it is occurring more frequently. He is also experiencing a headache with twitching and vision changes in his right eye. He says it feels hard to focus out of the right eye. He reports tingling to bilateral arms and legs. He tried Tylenol for his symptoms without improvement. He sees a pot runner annually, with the most recent visit at the end of last year. No recent travel or long car rides. Related Data Previous Rx's ?Medication ?Instructions ?Recorded amoxicillin 875 mg-potassium 1 tab PO Q12H 10 days #20 tabs 03/24/22 clavulanate 125 mg tablet prednisone 20 mg tablet 40 mg (2 x 20 mg) PO DAILY #10 tabs 01/26/23 amoxicillin 875 mg-potassium 1 tab PO BID #6 tabs 04/06/24 clavulanate 125 mg tablet Allergies Allergy/AdvReac Type Severity Reaction Status Date / Time gluten [GLUTEN] Allergy Unknown DIARRHEA Verified 01/20/25 16:17 lactose Allergy Gastrointestinal Verified 01/20/25 16:17 Upset Review of Systems 2 Review of Systems: Yes all other systems are reviewed and are negative [facility] Past Medical History Attestation statement: The following information was validated with the patient. Source: old records reviewed and nursing notes reviewed Medical History Hypertension Heart disease Social History Social History Alcohol intake: current Alcohol intake frequency: a few times a month Alcohol type: hard liquor Patient Tobacco Use Status: Never used Tobacco Smoked in Last 30 Days: No Use of substances other than those prescribed or required for medical reasons: No Advance Directives: No Advance Directives Information Provided: No Physical Exam ED Vital Signs: Vital Signs - 24 hr 01/20/25 16:17 01/20/25 18:28 01/20/25 18:33 Temperature 97.4 F 97.8 F Pulse Rate 68 63 97 Respiratory Rate 16 16 Blood Pressure 125/73 126/77 111/74 Pulse Oximetry 98 99 Oxygen Delivery Method Room Air Room Air 01/20/25 18:34 01/20/25 18:36 01/20/25 20:15 Temperature 98.7 F Pulse Rate 57 57 54 Respiratory Rate 16 Blood Pressure 113/80 122/76 111/69 Pulse Oximetry 98 Oxygen Delivery Method Room Air BMI result Body Mass Index 31.2 vital signs stable, not tachycardic, hypoxic General: Well appearing, in no acute distress. Skin: Warm, dry, intact. No rashes or lesions. Head: Normocephalic, atraumatic. EENT: Hearing is intact b/l. Conjunctiva clear. Sclera is anicteric. PERRLA. EOM intact. Moist mucous membranes.? Neck: Supple without LAD. FROM. Trachea midline.? Cardiac: Chest wall symmetric. RRR Lungs: Normal respiratory effort without accessory muscle use. CTA bilaterally. Abdomen: Soft, non-tender, non-distended. No rebound tenderness or guarding. Positive BS x4. Back: no midline spinous tenderness or step off Ext: Upper and lower extremities atraumatic, without tenderness, deformity, swelling or erythema. no calf tenderness b/l. Neuro: AOx3. Normal speech. Normal [id number], [id number], ambulating with steady gait. NIH 0. sensation and strength intact throughout. Psych: Appropriate mood and affect. Responds appropriately to questions. Course Course Course Narrative: This is an RME: Additional HPI, ROS, PE not included below will be deferred to primary provider. RME assessment and note performed by: Roxi Robb PA-C This is a 44-year-old male with atypical history for coronary artery disease, having had an PA at the age of 20, who presents to the ER with concerns for multiple complaints. Reports that on friday while he was driving he had a sudden cote of symptoms and felt sweats, warm, with chest pressure. Reports that since then he has not felt great - reporting lightheadedness, chest discomfort, some right eye vision changes. Reports that he went to his doctor and was told to come to the ED for further evaluation. No etoh use or drug use. Plan: Labs, EKG, viral swabs Reevaluation(s) Reevaluation #1: 1805 -- CBC without leukocytosis, no left shift. No anemia. H&H stable. Chemistry without acute electrolyte abnormality requiring intervention. No BARBARA. Liver function appears to be around baseline. Troponin undetectable. Given onset of symptoms and timing to presentation, delta trop not warranted at this time. ekg showing NSR with old RBBB, no acute ischemic changes or st elevations. Negative COVID, flu, RSV. Chest x-ray without infiltrate or consolidation to suggest pneumonia, no pneumothorax, no effusion. > ddimer pending > patient agreeable to migraine cocktail plus fluids 1929 -- ortho vital signs negative. D-dimer <150 - PE unlikely. CTA head/neck ordered. Patient stable at the end of my shift - sign out given to Dillon GREGORIO pending imaging and disposition. Reevaluation #2: Maris Swan NP 20:45 01/20/2025 CT Head without contrast. CT angiography head and neck with contrast. 3D Postprocessing. Comparison: None Findings: HEAD CT: No intra-axial mass, midline shift, hydrocephalus, or acute hemorrhage. No significant atrophy-like change or white matter disease. There is no sinus or mastoid fluid. The orbits are unremarkable. There is no acute fracture. HEAD AND NECK CTA: Aortic arch and cervical great vessels are patent. Intracranial arteries are patent. No aneurysm, dissection, or occlusion. No abnormal intracranial enhancement. The visualized thyroid gland is unremarkable. No cervical mass or fluid collection. Lung apices clear. No acute fracture. IMPRESSION: 1. Unremarkable head CT. 2. Patent head and neck CTA. symptomatic improvement after receiving migraine cocktail and fluids. No focal neurological deficits. No respiratory distress. Ambulatory with a steady gait. At this time feel that he is stable for discharge outpatient follow-up with PCP and given strict return precautions. All questions answered Medications Administered Discontinued Medications Generic Name Dose Route Start Last Admin Trade Name Freq PRN Reason Stop Dose Admin Diphenhydramine HCl 25 mg 01/20/25 17:52 01/20/25 18:12 Diphenhydramine Hcl 50 Mg/Ml Vial IVPUSH 01/20/25 17:53 25 mg ONCE ONE Administration Sodium Chloride 1,000 mls @ 999 mls/hr 01/20/25 18:00 01/20/25 18:12 Ns IV 01/20/25 19:00 999 mls/hr .Q1H1M JANKI Administration Iohexol 100 ml 01/20/25 19:25 01/20/25 19:25 Iohexol 350 Mg/Ml 100 Ml Infus..Btl IV 01/20/25 19:26 70 ml ONCE ONE Administration Ketorolac Tromethamine 30 mg 01/20/25 17:52 01/20/25 18:12 Ketorolac Tromethamine 30 Mg/Ml Vial IVPUSH 01/20/25 17:53 30 mg ONCE ONE Administration Metoclopramide HCl 10 mg 01/20/25 17:52 01/20/25 18:12 Metoclopramide Hcl 10 Mg/2 Ml Vial IVPUSH 01/20/25 17:53 10 mg ONCE ONE Administration Medical Decision Making Medical Decision Making [facility] Narrative: 44 year old male with pmhx significant for HTN, aortic root dilation, and myocardial infarction in his 20s who presents for episodic chest pain and lightheadedness since last Friday. vital signs stable, afebrile, not tachycardic or hypoxic. History without high risk features (not substernal, no exertional component, not relieved with rest).?Exam without evidence of volume overload. EKG without signs of active ischemia. Given the timing of pain to ED presentation, plan to send single troponin to evaluate for NSTEMI. Differential diagnosis also includes anemia, electrolyte abnormality, costochondritis, msk pain, pneumonia, pleurisy, PE. Presentation not consistent with pneumothorax, thoracic aortic dissection, cardiac effusion or tamponade, myocarditis, pericarditis. Differential diagnosis also includes dehydration, viral syndrome, migraine vs tension type headache. Neurologic exam without evidence of meningismus. No focal neurologic findings. Presentation not consistent with acute intracranial bleed including SAH. Presentation not consistent with acute PACKAGE DRIER infection including meningitis or brain abscess. Temporal arteritis unlikely, as is acute angle closure glaucoma given history and physical findings. Plan: labs, troponin, EKG, CXR, pain control, reassessment Differential Diagnosis Differential Diagnoses: The differential diagnosis associated with the presentation includes as above. Admission/Observation not indicated. Lab Data [facility] Lab Attestation statement: I reviewed the patient's lab results. as above. 01/20/25 16:32 01/20/25 16:32 Labs: Lab Results 01/20/25 01/20/25 Range/Units 16:32 18:29 WBC 4.1 L (4.8-10.8) X10*3/uL RBC 4.47 L (4.60-5.80) X10*6/uL Hgb 14.4 (14.0-18.0) g/dl Hct 42.4 (42.0-52.0) % MCV 94.9 (80.0-98.0) fL MCH 32.2 (27.0-33.0) pg MCHC 34.0 (31.0-36.0) g/dl RDW 11.9 (11.0-16.0) % Plt Count 227 (160-400) X10*3/uL MPV 10.0 (9.4-12.4) fL Immature Gran % (Auto) 0.5 H (0.0-0.4) % Neut % (Auto) 52.0 (45-73) % Lymph % (Auto) 37.0 (20-40) % [place] % (Auto) 6.1 (2-11) % Eos % (Auto) 2.9 (0-4) % Baso % (Auto) 1.5 (0-2) % Lymph # (Auto) 1.5 (1.2-4.9) X10*3/uL [place] # (Auto) 0.3 (0.1-1.2) X10*3/uL Eos # (Auto) 0.1 (0.0-0.4) X10*3/uL Baso # (Auto) 0.1 (0.0-0.2) X10*3/uL Abs Immat Gran (auto) 0.02 (0.00-0.03) X10*3/uL Absolute Neuts (auto) 2.1 (2.0-8.3) x10*3/uL Absolute Nucleated RBC 0.000 (0.0-0.012) X10*3/uL Nucleated RBC % (auto) 0.0 (0.0-0.2) /100WBC D-Dimer High Sensitivty < 150 NG/ML Sodium 143 (135-145) mmol/L Potassium 4.5 (3.3-5.1) mmol/L Chloride 106 (96-108) mmol/L Carbon Dioxide 30 H (22-29) mmol/L Anion Gap 12 (12-20) BUN 12 (9-16) mg/dL Creatinine 0.90 (0.5-1.4) mg/dL Estim Creat Clear Calc 119.6 Estimated GFR > 60 Random Glucose 96 (60-115) mg/dL Calcium 9.8 (8.4-10.2) mg/dL Magnesium 1.8 (1.6-2.6) mg/dL Total Bilirubin 0.6 (0.0-1.0) mg/dL Direct Bilirubin 0.2 (0.0-0.5) mg/dL AST 41 H (5-37) U/L ALT 102 H (0-40) U/L Alkaline Phosphatase 59 (39-117) U/L Troponin I High Sens < 2.7 (<3.5-35.0) ng/L Total Protein 7.1 (6.5-8.0) g/dL Albumin 4.9 (3.5-5.0) g/dL Influenza Type A (PCR) NEGATIVE (Negative) Influenza Type B (PCR) NEGATIVE (Negative) RSV RNA Qual (PCR) NEGATIVE (Negative) SARS-CoV-2 RNA (RT-PCR) NEGATIVE (Negative) Independent Interpretation I performed an independent interpretation of an: EKG, Plain X-Ray and CT Scan Interpretation: EKG showing normal sinus rhythm, incomplete right bundle-branch block evident on priors, rate of 72 beats per minute, no acute ischemic changes or ST elevations chest x-ray without infiltrate or consolidation, no pneumothorax CTA head/neck Radiology Impression Discussion of test interpretation with radiology: I have reviewed the radiologist's reading. Radiologist Impression: Date of Service: 01/20/25 Procedure(s): XR chest 2V Accession Number(s): [id number] cc: Sammie Rivera MD; Roxi Patrick~ CLINICAL HISTORY: CP Chest Radiographs, 2 views Comparison: CR/NM/SR - XR CHEST 1V - 11/10/24 14:30 EDT CR/NM/SR - XR CHEST 1V - 03/13/24 12:[address]/SR - CT ANGIO CHEST AORTA - 04/28/23 17:10 EDT Findings: No cardiomegaly. Normal mediastinal contours. No pneumothorax. No opacity. No pleural effusion. Normal upper abdomen. No acute fracture. Impression: No acute findings. This document has been electronically signed by: Fany Frank MD on 01/20/2025 17:10:58 External Record Review External record reviewed: Inpatient record Prescription Management I considered prescription management with: Pain Medication Chronic Conditions Patient?s care impacted by: Other (PA, CAD) Social Determinants Patient?s care significantly limited by Social Determinants of Health including: Other Social Determinant of Health Critical Care Time Critical Care Time Critical Care Time: No Discharge Plan Discharge Clinical Impression: Headache, Lightheadedness Patient Disposition: Home, Self-Care Instructions: Acute Headache (ED), Lightheadedness (ED) Additional Instructions: blood work today was overall reassuring. He had a chest x-ray that was normal. A CT of your head and neck as well as the blood vessels which did not show any abnormality which is very reassuring. EKG in cardiac enzyme markers; troponin were normal. Received medication in the emergency department for a headache improvement in symptoms. It is recommended that you follow-up outpatient with your primary care doctor within the next 3 days. Return to emergency department any new or worsening symptoms or concerns. Prescriptions: No Action amoxicillin-pot clavulanate 875-125 mg tablet 1 tab PO Q12H 10 Days Qty: 20 0RF prednisone 20 mg tablet 40 mg PO DAILY Qty: 10 0RF amoxicillin-pot clavulanate 875-125 mg tablet 1 tab PO BID Qty: 6 0RF Referrals: Sammie Rivera MD [Primary Care Provider] - Print Language: Bots[place]an
--- NOTE | 2025-01-20 16:23 | ECG_ITS ---
Test Reason : CHEST PAIN Blood Pressure : */* mmHG Vent. Rate : 72 BPM Atrial Rate : 72 BPM P-R Int : 162 ms QRS Dur : 98 ms QT Int : 378 ms P-R-T Axes : 32 0 38 degrees QTcB Int : 413 ms Normal sinus rhythm Incomplete right bundle branch block Borderline ECG When compared with ECG of 10-Nov-2024 14:39, Incomplete right bundle branch block is now Present Referred By: Roxi Robb Electronically Signed By: ALOK RAMIREZ MD
[2025-01-20 16:36] LABS: MANUAL DIFF FLAG NO
[2025-01-20 16:40] LABS: Basophils Absolute Auto 0.1 X10*3/uL (0.0-0.2); Basophils Percent Auto 1.5 % (0-2); Eosinophils Absolute Auto 0.1 X10*3/uL (0.0-0.4); Eosinophils Percent Auto 2.9 % (0-4); Hematocrit 42.4 % (42.0-52.0); Hemoglobin 14.4 g/dl (14.0-18.0); Imm Gran Abs Auto 0.02 X10*3/uL (0.00-0.03); Imm Gran Pct Auto 0.5 % (0.0-0.4); Lymphocytes Absolute Auto 1.5 X10*3/uL (1.2-4.9); Mean Corpuscular Hemoglobin 32.2 pg (27.0-33.0); Mean Corpuscular Volume 94.9 fL (80.0-98.0); Monocytes Absolute Auto 0.3 X10*3/uL (0.1-1.2); Monocytes Percent Auto 6.1 % (2-11); Neutrophils Absolute Auto 2.1 x10*3/uL (2.0-8.3); Platelet Count 227 X10*3/uL (160-400); Red Blood Count 4.47 X10*6/uL (4.60-5.80); Red Cell Distribution Width 11.9 % (11.0-16.0); White Blood Count 4.1 X10*3/uL (4.8-10.8)
[2025-01-20 16:53] LABS: Alanine Aminotransferase 102 U/L (0-40); Albumin Level 4.9 g/dL (3.5-5.0); Alkaline Phosphatase 59 U/L (39-117); Anion Gap 12 (12-20); Aspartate Amino Transferase 41 U/L (5-37); Bilirubin Direct 0.2 mg/dL (0.0-0.5); Bilirubin Total 0.6 mg/dL (0.0-1.0); Blood Urea Nitrogen 12 mg/dL (9-16); Calcium 9.8 mg/dL (8.4-10.2); Carbon Dioxide 30 mmol/L (22-29); Chloride 106 mmol/L (96-108); Creatinine Clr Calc Pharmacy 119.6; Estimated Glomerular Filt Rate > 60; Glucose Random 96 mg/dL (60-115); Magnesium 1.8 mg/dL (1.6-2.6); Potassium 4.5 mmol/L (3.3-5.1); Sodium 143 mmol/L (135-145); Total Protein 7.1 g/dL (6.5-8.0)
[2025-01-20 17:02] LABS: Troponin-I High Sensitivity < 2.7 ng/L (<3.5-35.0)
[2025-01-20 17:16] LABS: Influenza A PCR NEGATIVE (Negative); Influenza B PCR NEGATIVE (Negative); Resp Syncy Virus RNA Qual PCR NEGATIVE (Negative); SARS COV2 PCR INHOUSE NEGATIVE (Negative)
[2025-01-20] MEDS: 0.9 % Sodium Chloride 1,000 ML 999 ML IV (18:12)
[2025-01-20] MEDS: Ketorolac Tromethamine 30 MG/ML VIAL IVPUSH (18:12)
[2025-01-20] MEDS: Metoclopramide HCl 10 MG/2 ML VIAL IVPUSH (18:12)
[2025-01-20] MEDS: diphenhydrAMINE HCL 50 MG/ML VIAL 25 MG IVPUSH (18:12)
[2025-01-20 19:15] LABS: D Dimer High Sensitivity < 150 NG/ML
[2025-01-20] MEDS: iohexoL 350 MG/ML 100 ML INFUS..BTL IV (19:25)
== END 2025-01-20 21:26 | disposition home or self-care (01) ==
PROVIDERS: Physician Assistant Medical; Emergency Provider Emergency Medicine; PCP Internal Medicine
DX: R42 Dizziness and giddiness (principal); H53.8 Other visual disturbances; R51.9 Headache, unspecified; R20.2 Paresthesia of skin; Z03.818 Encounter for observation for suspected exposure to other biological agents ruled out; Z79.899 Other long term (current) drug therapy
CPT/HCPCS: 0241U; 36415; 70496; 70498; 71046; 80048; 80076; 83735; 84484; 85025; 85379; 93005; 96374; 96375; 99284; 99285; J1200; J1885; J2765; Q9967

== ENCOUNTER → 2025-01-20 16:23 | Outpatient (BNV) | payer OTHER, SELFPAY | PROVIDERS: Emergency Provider Emergency Medicine; PCP Internal Medicine; Visit Provider Internal Medicine Cardiovascular Disease | DX: I45.10 Unspecified right bundle-branch block (principal) | CPT/HCPCS: 93010 ==

== ENCOUNTER → 2025-01-20 16:24 | Outpatient (BNV) | payer OTHER, SELFPAY | PROVIDERS: Emergency Provider Emergency Medicine; PCP Internal Medicine; Visit Provider Radiology Diagnostic Radiology | DX: H52.531 Spasm of accommodation, right eye (principal); H53.8 Other visual disturbances; R51.9 Headache, unspecified; R07.9 Chest pain, unspecified | CPT/HCPCS: 70496; 70498; 71046 ==

== ENCOUNTER 2025-07-19 10:36 | Outpatient (AMB) | payer OTHER, SELFPAY ==
--- NOTE | 2025-07-19 10:40 | A.PHYSOV ---
Vital Signs 07/19/25 10:43 Height 5 ft 9 in Weight 205 lb BMI 30.3 Intake Visit Reasons: NPV Goldie Ref- midline LBP Allergies gluten (GLUTEN) Allergy (Unknown, Verified 01/20/25 16:17) DIARRHEA lactose Allergy (Verified 01/20/25 16:17) Gastrointestinal Upset HPI Comments Details: History of Present Illness The patient is a 45-year-old individual presenting for consultation with chronic low back pain. The pain has been present for a couple of months, primarily affecting the right side and radiating from the lower to mid-back, occasionally extending into the leg. The pain is described as a 3 out of 10 in severity, with stiffness and occasional burning and tingling sensations. The patient reports that standing for extended periods, particularly on hard surfaces, exacerbates the pain. The patient engages in regular exercise, including gym workouts and hockey, but avoids activities that strain the back, such as deadlifts. The patient has tried [id number] medications like Tylenol and ibuprofen, which have not provided significant relief. No prior imaging studies or physical therapy have been conducted for this issue. Pain Description - Onset: Pain present for a couple of months - Quality: Described as stiffness, burning, and tingling - Location: Right side, radiating from lower to mid-back, occasionally into the leg - Severity: 3 out of 10 - Exacerbating factors: Standing on hard surfaces, prolonged standing - Relieving factors: Avoidance of certain exercises like deadlifts Results - Imaging: No prior x-rays or MRIs conducted [facility] Medical History (Updated 07/19/25 @ 13:14 by EAN Martinez) Hypertension Heart disease Surgical History Hx of tonsillectomy Social History Alcohol intake: current Alcohol intake frequency: other Comment: once a year Patient Tobacco Use Status: Never used Tobacco Use of substances other than those prescribed or required for medical reasons: No Current occupational status: employed Review of Systems Narrative Review of Systems - Musculoskeletal: Reports chronic low back pain with stiffness, burning, and tingling; denies pain to touch - Neurological: Denies pain, tension, or tightness on leg lifts; sensation intact bilaterally Physical Exam Exam Exam: Physical Exam Lumbar Spine: Examination of his lumbar spine, there is no visible swelling or deformity. He is tender to lower lumbar facets. He is otherwise nontender. Full range of motion of his lumbar spine. He does have an increase in pain with facet loading. Special Tests: Lhermittes sign was negative Heel Toe walk is normal Left straight leg raise: Negative Right straight leg raise: Negative Special tests Kyler test is negative Ganslen's test is negative SI Joint compression test negative Aaliyah test negative Piriformis stretch is negative Lower Extremities: Full range of motion bilateral lower extremities. No calf pain or edema. Neuro: Sensation: Intact to lower extremities bilaterally Strength L2 (Psoas): 5/5 on the left and 5/5 on the right. L3 (Quads): 5/5 on the left and 5/5 on the right. L4 (Ant tibialis): 5/5 on the left and 5/5 on the right. L5 (EHL) 5/5 on the left and 5/5 on the right. S1 (Gastroc): 5/5 on the left and 5/5 on the right. DTR L4: (Patellar) Left 2 Right 2 S1: (Achilles) Left 2 Right 2 Babinski Downgoing No pathologic clonus. No involuntary movement. Vital Signs: BMI result Body Mass Index 30.3 Assessment & Plan Assessment & Plan (1) Vertebrogenic low back pain: Code(s): M54.51 - Vertebrogenic low back pain Category: Medical (2) Lumbar spondylosis: Code(s): M47.816 - Spondylosis without myelopathy or radiculopathy, lumbar region Category: Medical Plan Pain Management - Affect: Pain impacts daily activities, particularly standing and exercise - Analgesia: Current pain level is 3/10; Tylenol and ibuprofen tried with minimal relief - Adverse Effects: None reported from medications - Activities of Daily Living: Pain affects ability to stand for long periods and perform certain exercises - Aberrant Drug Related Behaviors: None reported Plan Patient was informed and verbally consented to the use of an ambient scribe for clinic note documentation during this visit. 1. Chronic Low Back Pain The plan for managing the patient's chronic low back pain includes obtaining an x-ray to assess the condition further. Physical therapy is recommended to provide targeted exercises and strategies to alleviate pain and improve function. The patient is advised to continue avoiding exercises that strain the back, such as deadlifts, and to incorporate more bodyweight exercises. The use of natural anti-inflammatory supplements, such as turmeric with curcumin and biopurine, is suggested to help manage inflammation. Recommend follow-up post physical therapy, he is not markedly improved we will consider MRI of his lumbar spine. We discussed the benefits of proper nutrition and exercise to maintain a healthy body weight to improve longevity and function. We also discussed the benefits of proper lifting techniques, core strengthening and proper posture. Thank you for allowing me to participate in the care of your patient. Orders: Orders XR lumbar spine 4V min Today M54.9 - Dorsalgia, unspecified PT Evaluation and Treatment Today M54.51 - Vertebrogenic low back pain Coding Level of Care Code Tele New Pt Level 4 (66173) Diagnoses Vertebrogenic low back pain M54.51 Lumbar spondylosis M47.816
[2025-07-19 10:43] VITALS: BMI 30.3
== END 2025-07-19 11:13 | disposition home or self-care (01) ==
LOC: HO.HPHYS 10:37
PROVIDERS: PCP Internal Medicine; Visit Provider Physician Assistant
DX: M54.51 Vertebrogenic low back pain (principal); M47.816 Spondylosis without myelopathy or radiculopathy, lumbar region
CPT/HCPCS: 99204